=== PATIENT | male | born 1970 | race Hispanic/Latino ===

== ENCOUNTER 2020-03-04 15:14 | Inpatient (IN) | payer OTHER ==
[~2020-03-04] VITALS: Ht 182.9 cm; Wt 108.9 kg
[2020-03-04] MEDS ORDERED: SODIUM CHLORIDE 0.9% 1000ML 1,000 ML IV STA ×2 (15:32→17:13)
[2020-03-04] MEDS ORDERED: AZITHROMYCIN 500MG/NS 250 ML 250 ML IV ONE (15:45)
--- NOTE | 2020-03-04 16:00 | NUR ---
RESP CALLED FOR IDAO MIRLANDE PER MD
[2020-03-04 16:04] LABS: BASOPHILS # (AUTO) 0.1 (0.0-0.1); BASOPHILS % 0.4 % (0.0-1.0); EOSINOPHILS % 0.1 % (0.0-6.0); HEMATOCRIT 41.4 % (38.2-49.6); HEMOGLOBIN 13.9 g/dL (14.0-18.0); LYMPHOCYTES # (AUTO) 1.4 (1.0-3.2); LYMPHOCYTES % 7.8 % (18.0-39.1); MEAN CORPUSCULAR HEMOGLOBIN 28.5 pg (28-32); MEAN CORPUSCULAR HGB CONC 33.6 g/dL (31-35); MONOCYTES # (AUTO) 0.8 (0.2-0.8); MONOCYTES % 4.4 % (4.4-11.3); NEUTROPHILS % 86.4 % (38.7-80.0); PLATELET COUNT 361 x10e3/uL (140-360); RED BLOOD COUNT 4.87 x10e6/uL (4.3-5.7); RED CELL DISTRIBUTION WIDTH 12.1 % (11.7-14.4)
[2020-03-04] MEDS ORDERED: ASPIRIN EC81 MG (16:05)
[2020-03-04] MEDS ORDERED: METFORMIN HCL1000 MG (16:05)
[2020-03-04] MEDS ORDERED: NOVOLIN (16:05)
[2020-03-04] MEDS ORDERED: AZITHROMYCIN250 MG (16:05)
[2020-03-04] MEDS ORDERED: GLIMEPIRIDE4 MG (16:05)
[2020-03-04] MEDS ORDERED: LISINOPRIL-HCT1 EAC2 (16:05)
[2020-03-04] MEDS ORDERED: LOVASTATIN10 MG (16:05)
[2020-03-04] MEDS ORDERED: ALBUTEROL (16:05)
[2020-03-04 16:16] LABS: INR 0.97; PROTHROMBIN TIME 13.5 seconds (11.9-14.5)
[2020-03-04 16:17] LABS: PARTIAL THROMBOPLASTIN TIME 37.3 seconds (23.8-35.5)
--- NOTE | 2020-03-04 16:22 | NUR ---
VAPO THERM 30 LPM AT 80%
[2020-03-04 16:24] LABS: ALANINE AMINOTRANSFERASE 42 IU/L (0-55); ALBUMIN 2.5 g/dL (3.5-5.0); ALBUMIN/GLOBULIN RATIO 0.4 (0.8-2.0); ALKALINE PHOSPHATASE 144 IU/L (40-150); ANION GAP 17.4 mmol/L (8-16); BLOOD UREA NITROGEN 16 mg/dL (7-26); BUN/CREATININE RATIO 18 (6-25); CALCIUM 9.6 mg/dL (8.4-10.2); CARBON DIOXIDE 24 mmol/L (22-29); CHLORIDE 95 mmol/L (98-107); CREATINE KINASE 75 IU/L (30-200); CREATININE, SERUM 0.91 mg/dL (0.72-1.25); EST GLOMERULAR FILTRATION RATE > 60 ML/MIN (60-); GLUCOSE 308 mg/dL (74-118); POTASSIUM 4.4 mmol/L (3.5-5.1); SODIUM 132 mmol/L (136-145)
--- NOTE | 2020-03-04 16:24 | NUR ---
G ORDERED PER MD. SMALLS DRAWING
[2020-03-04] MEDS ORDERED: CEFTRIAXONE SOD 2 GM/NS 100 ML 100 ML IV ONE (16:30)
[2020-03-04 16:39] LABS: B-TYPE NATRIURETIC PEPTIDE2 < 10.0 pg/mL (0-100)
--- NOTE | 2020-03-04 16:46 | NUR ---
INCREASED VAPO THERM TO 100% AT 40 LPM. REMAINS TACHYPNENIC AND TACHY
[2020-03-04 16:57] LABS: ABG HCO3 26 mmol/L (22-26); ABG PCO2 33 mmHg (35-45); ABG PO2 78 mmHg (80-105)
[2020-03-04] MEDS ORDERED: CEFTRIAXONE SOD 1 GM VIAL ONE ×2 (17:00→17:01)
--- NOTE | 2020-03-04 17:06 | NUR ---
GREEN SEPSIS SHEET ON CHART PER POLICY
--- NOTE | 2020-03-04 17:14 | Diagnostic Imaging Report ---
Examination: Single AP view of the chest. COMPARISON: None. INDICATION: Shortness of breath and hypoxia IMPRESSION: 1. Lines and Tubes: None 2. Lungs are hypoinflated. Diffuse bilateral patchy interstitial and airspace opacities, suggesting multifocal pneumonia (including viral) and/or pulmonary edema. 3. Cardiomediastinal silhouette is obscured. Pulmonary vasculature is obscured. 4. No acute bony abnormalities. Signed by: Dr. Felix Yo M.D. on 03/04/2020 5:10 PM
--- NOTE | 2020-03-04 17:22 | Emergency Department Note ---
History of Present Illnes History of Present Illness Chief Complaint: COVID PUI History of Present Illness This is a 49 year old male PATIENT IN FROM HOME WITH COMPLAINTS OF COUGH AND SHORTNESS OF BREATH X 1 WEEK; PATIENT TACHYPNEIC AND HYPOXIC IN TRIAGE; O2 SATS 77% ON ROOM AIR WHEN HE WALKED INTO TRIAGE Historian: Patient Arrival Mode: Car Manager Of Broadcast Content Required: No Onset (how long ago): week(s) (1) Radiation: Reports non-radiation Severity: moderate Onset quality: gradual Timing of current episode: constant Progression: worsening Chronicity: new Context: Reports recent illness Relieving factors: none Exacerbating factors: none Associated symptoms: Reports cough, Reports fever/chills, Reports shortness of breath Treatments prior to arrival: none Past Medical/Family History Physician Review I have reviewed the patient's past medical and family history. Any updates have been documented here. Past Medical History Recent Fever: No Clinical Suspicion of Infectio: Yes New/Unexplained Change in Ment: No Past Medical History: Hypertension, Diabetes Other Medical History: HLD Past Surgical History: None Social History Smoking Cessation: Never Smoker Counseling Performed: No Alcohol Use: Occasional Any Illegal Drug Use: No TB Exposure/Symptoms: No Physically hurt or threatened: No Family History Family history of heart diseas: No Other Any Pre-Existing Lines (PICC,: No Review of Systems Review of Systems Constitutional: Reports as per HPI EENTM: Reports no symptoms Cardiovascular: Reports no symptoms Respiratory: Reports as per HPI Gastrointestinal: Reports no symptoms Genitourinary: Reports no symptoms Musculoskeletal: Reports no symptoms Integumentary: Reports no symptoms Neurological: Reports no symptoms Psychological: Reports no symptoms Endocrine: Reports no symptoms Hematological/Lymphatic: Reports no symptoms Physical Exam Related Data Allergies: Coded Allergies: No Known Allergies (Unverified , 03/04/20) Triage Vital Signs Vital Signs Date Time Temp Pulse Resp B/P (MAP) Pulse Ox O2 Delivery O2 Flow Rate FiO2 03/04/20 15:23 98.0 135 36 169/88 82 Room Air 03/04/20 16:55 30.0 Vital signs reviewed: Yes Physical Exam CONSTITUTIONAL Constitutional: Present distressed HENT HENT: Present normocephalic, Present atraumatic, Present oropharynx clear/mois t, Present nose normal HENT L/R: Present left ext ear normal, Present right ext ear normal EYES Eyes: Reports PERRL, Reports conjunctivae normal NECK Neck: Present ROM normal PULMONARY Pulmonary: Present respiratory distress, Present other (DECREASED BS'S BASES, SCATTERED RHONCHI) CARDIOVASCULAR Cardiovascular: Present regular rhythm, Present tachycardia GASTROINTESTINAL Abdominal: Present soft, Present nontender, Present bowel sounds normal GENITOURINARY Genitourinary: Present exam deferred SKIN Skin: Present warm, Present dry MUSCULOSKELETAL Musculoskeletal: Present ROM normal NEUROLOGICAL Neurological: Present alert, Present oriented x 3, Present no gross motor or s ensory deficits PSYCHOLOGICAL Psychological: Present mood/affect normal, Present judgement normal Results Laboratory Result Diagram: 03/04/20 1545 03/04/20 1545 Laboratory Laboratory Tests Test 03/04/20 17:00 03/04/20 15:45 Arterial Blood pH 7.50 (7.35-7.45) Arterial Blood Partial Pressure CO2 33 mmHg (35-45) Arterial Blood Partial Pressure O2 78 mmHg (80-105) Arterial Blood HCO3 26 mmol/L (22-26) Arterial Blood Oxygen Saturation 97.0 % (95-98) Arterial Blood Base Excess 2.0 mmol/L (-2 - 3) FiO2 80 % White Blood Count 18.53 x10e3/uL (4.8-10.8) Red Blood Count 4.87 x10e6/uL (4.3-5.7) Hemoglobin 13.9 g/dL (14.0-18.0) Hematocrit 41.4 % (38.2-49.6) Mean Corpuscular Volume 85.0 fL (81-99) Mean Corpuscular Hemoglobin 28.5 pg (28-32) Mean Corpuscular Hemoglobin Concent 33.6 g/dL (31-35) Red Cell Distribution Width 12.1 % (11.7-14.4) Platelet Count 361 x10e3/uL (140-360) Neutrophils (%) (Auto) 86.4 % (38.7-80.0) Lymphocytes (%) (Auto) 7.8 % (18.0-39.1) Monocytes (%) (Auto) 4.4 % (4.4-11.3) Eosinophils (%) (Auto) 0.1 % (0.0-6.0) Basophils (%) (Auto) 0.4 % (0.0-1.0) Neutrophils # (Auto) 16.0 (2.1-6.9) Lymphocytes # (Auto) 1.4 (1.0-3.2) Monocytes # (Auto) 0.8 (0.2-0.8) Eosinophils # (Auto) 0.0 (0.0-0.4) Basophils # (Auto) 0.1 (0.0-0.1) Absolute Immature Granulocyte (auto 0.17 x10e3/uL (0-0.1) Prothrombin Time 13.5 seconds (11.9-14.5) Prothromb Time International Ratio 0.97 Activated Partial Thromboplast Time 37.3 seconds (23.8-35.5) Sodium Level 132 mmol/L (136-145) Potassium Level 4.4 mmol/L (3.5-5.1) Chloride Level 95 mmol/L (98-107) Carbon Dioxide Level 24 mmol/L (22-29) Anion Gap 17.4 mmol/L (8-16) Blood Urea Nitrogen 16 mg/dL (7-26) Creatinine 0.91 mg/dL (0.72-1.25) Estimat Glomerular Filtration Rate > 60 ML/MIN (60-) BUN/Creatinine Ratio 18 (6-25) Glucose Level 308 mg/dL (74-118) Lactic Acid Level 2.1 mmol/L (0.5-2.0) Calcium Level 9.6 mg/dL (8.4-10.2) Total Bilirubin 0.6 mg/dL (0.2-1.2) Aspartate Amino Transf (AST/SGOT) 35 IU/L (5-34) Alanine Aminotransferase (ALT/SGPT) 42 IU/L (0-55) Alkaline Phosphatase 144 IU/L (40-150) Creatine Kinase 75 IU/L (30-200) Creatine Kinase MB 0.90 ng/mL (0-5.0) Troponin I < 0.001 ng/mL (0-0.300) B-Type Natriuretic Peptide < 10.0 pg/mL (0-100) Total Protein 8.4 g/dL (6.5-8.1) Albumin 2.5 g/dL (3.5-5.0) Globulin 5.9 g/dL (2.3-3.5) Albumin/Globulin Ratio 0.4 (0.8-2.0) Lab results reviewed: Yes Imaging Imaging results reviewed: Yes Procedures 12 Lead ECG Interpretation ECG Interpretation : ECG: ECG 1 Manager Of Broadcast Content: Interpreted by ED physician Date: Mar 04, 2020 Time: 15:43 Rhythm: sinus tachycardia Rate: tachycardia (126) QRS axis: normal T waves normal: Yes Clinical Impression: abnormal ECG (NON-SPECIFIC ST ABNL) ABG Interpretation ABG Results: ABG 1 Interpretation: other (RESPIRATORY ALKALOSIS, HYPOXIA) Critical Care Time Total Critical Care Time (min): 35 Critical care time exclusive o: separately billable procedures Critcal care necessary due to: respiratory failure Critcal care time spent by me: discussion w consultants, evaluation patient response to tx, examination of patient, order/perform tx or interventions, pulse oximetry, re-evaluation of patient condition Assessment & Plan Medical Decision Making MDM RESP DISTRESS, DIDIER COVID - CBC, CHEM, ECG, CARDIACS, BNP, LACTIC ACID, PANCX'S, CXR, COVID SWAB - R/O COVID19, SEPSIS, PNEUMONIA, STEMI/NSTEMI, CHF Reassessment Reassessment RESPIRATORY DISTRESS - STILL HYPOXIC AND TACHYPNEIC WITH 5L NC - WILL START VAPOTHERM SPOKE WITH DR CABEZAS FOR ADMISSION, DR Carlie ROBLEDO & DR WAYNE Assessment & Plan Final Impression: (1) Respiratory failure (2) Pneumonia due to COVID-19 virus Depart Disposition: ADMITTED Last Vital Signs Date Time Temp Pulse Resp B/P (MAP) Pulse Ox O2 Delivery O2 Flow Rate FiO2 03/04/20 16:55 112 30 98 30.0 03/04/20 16:48 158/84 03/04/20 15:23 98.0 Room Air Home Meds Reported Medications Aspirin (ASPIRIN EC) 81 Mg Tablet. 03/04/20 Metformin Hcl (METFORMIN HCL) 1,000 Mg Tablet 03/04/20 Glimepiride (GLIMEPIRIDE) 4 Mg Tablet 03/04/20 Lisinopril/Hydrochlorothiazide (LISINOPRIL-HCTZ 10-12.5 MG TAB) 1 Each Tablet 03/04/20 Lovastatin (LOVASTATIN) 10 Mg Tablet 03/04/20 [Novolin] No Conflict Check 03/04/20 [Albuterol] No Conflict Check 03/04/20 Azithromycin (Z-LEIF) 250 Mg Tablet 03/04/20 Medications in the ED Sodium Chloride 1,000 ml @ 0 mls/hr Q0M STAT IV ; Start 03/04/20 at 15:32; Stop 03/04/20 at 15:36; Status DC Ceftriaxone Sodium 100 ml @ 200 mls/hr ONCE ONCE IV ; Start 03/04/20 at 16:30; Stop 03/04/20 at 16:59; Status DC Azithromycin 250 ml @ 200 mls/hr NOW ONCE IV ; Start 03/04/20 at 15:45; Stop 03/04/20 at 16:59; Status DC Ceftriaxone Sodium 1 gm STK-MED ONCE .ROUTE ; Start 03/04/20 at 17:00; Stop 03/04/20 at 16:55; Status DC Ceftriaxone Sodium 1 gm STK-MED ONCE .ROUTE ; Start 03/04/20 at 17:01; Stop 03/04/20 at 16:56; Status DC CHEPE AMADOR MD Mar 04, 2020 17:21
[2020-03-04] MEDS ORDERED: DEXAMETHASONE SOD PHOS INJ 4 MG/ML VIAL IV ONE (17:30)
[2020-03-04] MEDS ORDERED: ENOXAPARIN SOD INJ 40 MG/0.4 ML SYR SC ONE (17:38)
[2020-03-04] MEDS ORDERED: ZOLPIDEM TARTRATE 5 MG TAB PO PRN (18:00)
[2020-03-04] MEDS ORDERED: ALBUTEROL SULFATE HFA 8GM INHALATION AEROSOL INH PRN (18:00)
[2020-03-04] MEDS ORDERED: GUAIFENESIN/CODEINE 10 ML CUP PO PRN (18:00)
[2020-03-04] MEDS ORDERED: DEXMEDETOMIDINE 200MCG/NS 50ML 50 ML IV PRN (18:15)
[2020-03-04] MEDS ORDERED: DEXTROSE 50% SYRINGE 50 ML IV PRN (18:15)
[2020-03-04] MEDS ORDERED: INSULIN GLARGINE 100 UNITS/ML VIAL SQ SCH (21:00)
[2020-03-04] MEDS: INSULIN REGULAR, HUMAN 100 UNIT/1 ML 3ML VIAL SQ SCH (22:02)
[2020-03-05] VITALS (9 sets, daily range): BP systolic 121–149; BP diastolic 63–88
--- NOTE | 2020-03-05 01:28 | Consultation ---
DATE OF CONSULTATION: Pulmonary and Critical Care Consultation CHIEF COMPLAINT: Dyspnea and cough for the past week. HISTORY OF PRESENT ILLNESS: The patient is a 49-year-old man. He has a history of hypertension, but no prior cardiac disease. He also has a history of diabetes. He notes worsening dyspnea over the past week. He has a cough productive of small amounts of phlegm. He does not complain of chest pain. He is unsure about fevers. He has no nausea or vomiting. PAST MEDICAL HISTORY: 1. Hypertension. 2. Diabetes. 3. Hypercholesterolemia. PAST SURGICAL HISTORY: Noncontributory. ALLERGIES: NO KNOWN DRUG ALLERGIES. SOCIAL HISTORY: The patient is not a smoker. He is not a drinker. REVIEW OF SYSTEMS: There is no fever. He has no headache. He does not complain of any neck pain. He has no chest pain. He does note some dyspnea. He denies abdominal pain. There is no nausea or vomiting. He has no leg edema. PHYSICAL EXAMINATION: VITAL SIGNS: The blood pressure is 145/88, saturation is 100% on a Vapotherm with 40 L and FiO2 of 100%. HEENT: Shows no facial swelling or erythema. CARDIAC: Reveals regular rate and rhythm with normal S1 and S2. LUNGS: Auscultation of lungs reveals crackles at the bases. There is no wheezing. ABDOMEN: Soft, nontender. There is no rebound or guarding. EXTREMITIES: Shows no leg edema or calf tenderness. There is no cyanosis or clubbing. SKIN: Shows no rashes. NEUROLOGICAL: Shows no focal abnormalities. LABORATORY DATA: White blood cell count is 18.5, hemoglobin is 13.9. The platelet count is 361. BUN to creatinine ratio is 16 to 0.91. Glucose is 309. The sodium is 132. Albumin is 2.5. RADIOGRAPHIC DATA: Chest x-ray shows diffuse bilateral infiltrates. IMPRESSION: 1. Acute respiratory failure. 2. Community-acquired pneumonia. 3. Possible coronavirus disease-2019 infection. 4. Diabetes. 5. Hypertension. PLAN: 1. The patient has received a 30 mL/kg IV fluid bolus for sepsis. 2. The patient is started on antibiotics. 3. Dexamethasone daily. 4. Lovenox. 5. Monitor and control blood sugars. 6. Continue Vapotherm. 7. ICU care. MD MONISHA Agrawal/NINAL /[id number]
--- NOTE | 2020-03-05 05:30 | Diagnostic Imaging Report ---
EXAMINATION: CHEST SINGLE (PORTABLE) INDICATION: ^viral pneumonia COMPARISON: 03/04/2020 FINDINGS: AP view TUBES and LINES: None. LUNGS: Unchanged pulmonary airspace disease. PLEURA: No pleural effusion or pneumothorax. HEART AND MEDIASTINUM: The cardiomediastinal silhouette is unremarkable. BONES AND SOFT TISSUES: No acute osseous lesion. Soft tissues are unremarkable. UPPER ABDOMEN: No free air under the diaphragm. IMPRESSION: Unchanged pulmonary airspace disease consistent with provided history of viral pneumonia. Signed by: Clemente Lyons MD on 03/05/2020 5:26 AM
--- NOTE | 2020-03-05 07:24 | NUR ---
NOTIFIED LAB OF NEED FOR THEM TO DRAW ORDERS.
--- NOTE | 2020-03-05 07:35 | NUR ---
PT ON LEFT LAT RECUM.POSITION, PT STATES CANT LAY ON STOMACH. PT AAOX4. REMAINS ON VAPO THERM AT 40 LPM/100% FIO2. SATS 96%. GIVEN WATER PO. PT SINUS NO ECTOPY NOTED. PT GIVEN UPDATE.
[2020-03-05 08:12] LABS: BASOPHILS % 0.3 % (0.0-1.0); HEMATOCRIT 41.4 % (38.2-49.6); HEMOGLOBIN 13.3 g/dL (14.0-18.0); LYMPHOCYTES # (AUTO) 1.4 (1.0-3.2); LYMPHOCYTES % 9.8 % (18.0-39.1); MEAN CORPUSCULAR HEMOGLOBIN 28.6 pg (28-32); MEAN CORPUSCULAR HGB CONC 32.1 g/dL (31-35); MONOCYTES # (AUTO) 0.5 (0.2-0.8); MONOCYTES % 3.6 % (4.4-11.3); NEUTROPHILS # (AUTO) 11.9 (2.1-6.9); NEUTROPHILS % 85.4 % (38.7-80.0); PLATELET COUNT 386 x10e3/uL (140-360); RED BLOOD COUNT 4.65 x10e6/uL (4.3-5.7); RED CELL DISTRIBUTION WIDTH 12.4 % (11.7-14.4)
[2020-03-05 08:32] LABS: ALANINE AMINOTRANSFERASE 45 IU/L (0-55); ALBUMIN 2.1 g/dL (3.5-5.0); ALBUMIN/GLOBULIN RATIO 0.4 (0.8-2.0); ALKALINE PHOSPHATASE 129 IU/L (40-150); ANION GAP 14.6 mmol/L (8-16); BLOOD UREA NITROGEN 23 mg/dL (7-26); BUN/CREATININE RATIO 27 (6-25); CALCIUM 9.2 mg/dL (8.4-10.2); CARBON DIOXIDE 24 mmol/L (22-29); CHLORIDE 103 mmol/L (98-107); CREATININE, SERUM 0.85 mg/dL (0.72-1.25); EST GLOMERULAR FILTRATION RATE > 60 ML/MIN (60-); GLUCOSE 304 mg/dL (74-118); POTASSIUM 4.6 mmol/L (3.5-5.1); SODIUM 137 mmol/L (136-145)
[2020-03-05 08:54] LABS: CREATINE KINASE MB 1.3 ng/mL (0-5.0)
[2020-03-05] MEDS: ENOXAPARIN SOD INJ 40 MG/0.4 ML SYR SC SCH ×2 (08:59→20:14)
[2020-03-05] MEDS: INSULIN REGULAR, HUMAN 100 UNIT/1 ML 3ML VIAL SQ SCH ×4 (08:59→20:21)
[2020-03-05] MEDS ORDERED: ENOXAPARIN SOD INJ 40 MG/0.4 ML SYR SC SCH (09:00)
[2020-03-05] MEDS: AZITHROMYCIN 500MG/NS 250 ML 250 ML IV SCH (16:00)
[2020-03-05] MEDS: CEFTRIAXONE SOD 1 GM/NS 50 ML 50 ML IV SCH (16:00)
[2020-03-05] MEDS: DEXAMETHASONE PHOS 4MG/ML 5ML MULTIDOSE VIAL IV SCH (16:00)
[2020-03-05] MEDS: ZINC SULFATE 220 MG CAP PO SCH (16:00)
[2020-03-05] MEDS: ASCORBIC ACID 500 MG TAB PO SCH (16:00)
[2020-03-05] MEDS ORDERED: REMDESIVIR 200MG/NS 100ML 200 MG IV ONE (17:00)
--- NOTE | 2020-03-05 17:43 | Consultation ---
DATE OF CONSULTATION: REASON FOR CONSULTATION: Sepsis, pneumonia, COVID-19. HISTORY OF PRESENT ILLNESS: This is a 49-year-old male with history of obesity and hypertension, who has been sick for 5 days with fever and chills, getting progressively shortness of breath over the last couple days. The patient came to the emergency room where he was evaluated. The patient also has some productive cough. The patient does have history of hypertension, diabetes mellitus, hypercholesteremia, and obesity. Currently in the Emergency Room, the patient is seen and examined. Chart reviewed. LABORATORY DATA: Reviewed. His white count on admission was 18.5, hemoglobin 13.9, and his platelet of 361. Sodium 137, potassium 4.6, and creatinine 0.85. His glucose was 271, and liver enzyme. His AST 36. PHYSICAL EXAMINATION: GENERAL: Currently alert and oriented. He is hypoxemic, short of breath. VITAL SIGNS: His heart rate 84, respirations 25, O2 saturation of 95 on 40% oxygenation. HEENT: Normocephalic. CHEST: Few rhonchi, bilateral. HEART: S1-S2. No murmur. ABDOMEN: Soft. Bowel sounds present. EXTREMITIES: No edema. SKIN: No rashes. IMPRESSION AND PLAN: 1. Coronavirus disease-19, present on admission. 2. Acute respiratory failure, present on admission. 3. Superimposed community-acquired pneumonia. 4. Diabetes mellitus, not controlled. 5. Obesity. We will start the patient on Rocephin 1 g daily 5 days, azithromycin 500 mg daily for 3 days, diabetic control, and Lovenox 0.5 mg/kg q.12 hours. Continue with Lipitor. Continue all his home medications, vitamin C, vitamin D, zinc supplement, and dexamethasone 6 mg daily. Discussed with the patient about remdesivir. He is aware it is still investigational drug, however, that is FAD approved for urgent patient and he does meet the criteria, has been ill less than 5 days. I think he would benefit. The patient agreed to it. We will do 200 mg now and then 100 mg IV piggyback q.24 hours to finish 5 days. The patient is going to be admitted to the hospital. Discussed with the medical team. Thank you for asking me to see this patient. MD ANDERS Tapia/AMARA /[id number]
--- NOTE | 2020-03-05 18:02 | Progress Note ---
DATE: Pulmonary Critical Care Progress Note SUBJECTIVE: The patient remains on Vapotherm. He is still on 40 L with 100% FiO2, but is less tachypneic and appears more comfortable. He has less cough. PHYSICAL EXAMINATION: VITAL SIGNS: The patient is afebrile. The blood pressure is 145/70, and saturation is 95%. HEENT: No facial swelling or erythema. CARDIAC: Regular rate and rhythm with normal S1, S2. LUNGS: Auscultation of lungs reveals crackles at the bases. There is no wheezing. ABDOMEN: Soft, nontender. There is no rebound or guarding. EXTREMITIES: No leg edema or calf tenderness. There is no cyanosis or clubbing. SKIN: No rashes. NEUROLOGICAL: No focal abnormalities. RADIOGRAPHIC DATA: Chest x-ray shows bilateral pulmonary infiltrates. LABORATORY DATA: White blood cell count is 13.9, hemoglobin is 15.3, and platelet count is 386. BUN to creatinine ratio is normal. Other electrolytes are within normal limits. The glucose is 250-315. IMPRESSION: 1. Viral pneumonia and coronavirus disease-19 infection. 2. Acute respiratory failure. 3. Diabetes. 4. Hypertension. PLAN: 1. Continue Vapotherm. 2. Continue current antibiotics. 3. The patient has been started on remdesivir. 4. Dexamethasone. Ortega Mcginnis MD [facility]/MODL /[id number]
[2020-03-05] MEDS: ATORVASTATIN 20 MG TAB PO SCH (20:19)
[2020-03-05] MEDS ORDERED: INSULIN GLARGINE 100 UNITS/ML VIAL SQ SCH ×2 (21:00)
[2020-03-05 21:24] LABS: BILIRUBIN,URINE NEGATIVE (NEGATIVE); CLARITY,URINE SL CLOUDY (CLEAR); COLOR,URINE YELLOW (YELLOW); KETONES,URINE 2+ (NEGATIVE); LEUKOCYTE ESTERASE ,URINE NEGATIVE (NEGATIVE); NITRITE,URINE NEGATIVE (NEGATIVE); PROTEIN,URINE DIPSTICK 1+ (NEGATIVE); URINE UROBILINOGEN 0.2 mg/dL (0.2 - 1)
[2020-03-05 21:35] LABS: BACTERIA,URINE MODERATE /HPF; EPITHELIAL CELLS,URINE FEW /LPF; WBC,URINE (MAN) 0-5 /HPF (0-5)
[2020-03-05 22:00] LABS: CREATINE KINASE MB 1.3 ng/mL (0-5.0)
[2020-03-06] VITALS (12 sets, daily range): BP systolic 126–145; BP diastolic 59–82
[2020-03-06 06:02] LABS: BASOPHILS % 0.3 % (0.0-1.0); HEMATOCRIT 40.6 % (38.2-49.6); HEMOGLOBIN 13.2 g/dL (14.0-18.0); LYMPHOCYTES # (AUTO) 1.4 (1.0-3.2); MEAN CORPUSCULAR HEMOGLOBIN 28.2 pg (28-32); MEAN CORPUSCULAR HGB CONC 32.5 g/dL (31-35); MEAN CORPUSCULAR VOLUME 86.8 fL (81-99); MONOCYTES # (AUTO) 0.7 (0.2-0.8); MONOCYTES % 4.5 % (4.4-11.3); NEUTROPHILS # (AUTO) 12.9 (2.1-6.9); NEUTROPHILS % 84.9 % (38.7-80.0); PLATELET COUNT 438 x10e3/uL (140-360); RED BLOOD COUNT 4.68 x10e6/uL (4.3-5.7); RED CELL DISTRIBUTION WIDTH 12.7 % (11.7-14.4)
[2020-03-06 06:20] LABS: ALANINE AMINOTRANSFERASE 54 IU/L (0-55); ALBUMIN/GLOBULIN RATIO 0.4 (0.8-2.0); ALKALINE PHOSPHATASE 116 IU/L (40-150); ANION GAP 13.2 mmol/L (8-16); BLOOD UREA NITROGEN 30 mg/dL (7-26); BUN/CREATININE RATIO 38 (6-25); CALCIUM 9.1 mg/dL (8.4-10.2); CARBON DIOXIDE 24 mmol/L (22-29); CHLORIDE 103 mmol/L (98-107); CHOL/HDL RATIO 17.5 (3.9-4.7); CHOLESTEROL 140 MD/DL (0-199); EST GLOMERULAR FILTRATION RATE > 60 ML/MIN (60-); GLUCOSE 326 mg/dL (74-118); HDL CHOLESTEROL 8 MG/DL (40-60); LDL CHOLESTEROL 93 MG/DL (60-130); POTASSIUM 4.2 mmol/L (3.5-5.1); SODIUM 136 mmol/L (136-145); TRIGLYCERIDES 196 MG/DL (0-149)
[2020-03-06 06:43] LABS: THYROID STIMULATING HORMONE 0.632 uIU/mL (0.350-4.940)
--- NOTE | 2020-03-06 07:00 | NUR ---
PT ASSISTED INTO PRONE POSITION AT THIS TIME.
[2020-03-06] MEDS: ENOXAPARIN SOD INJ 40 MG/0.4 ML SYR SC SCH ×2 (07:58→20:20)
[2020-03-06] MEDS: INSULIN REGULAR, HUMAN 100 UNIT/1 ML 3ML VIAL SQ SCH ×4 (07:58→20:31)
--- NOTE | 2020-03-06 08:27 | Diagnostic Imaging Report ---
EXAMINATION: CHEST SINGLE (PORTABLE) INDICATION: Viral pneumonia COMPARISON: Chest radiograph 03/05/2020 FINDINGS: LINES/TUBES:EKG leads overlie the chest. LUNGS:The lung volumes are low. Unchanged left greater than right multifocal airspace opacities. PLEURA:No pleural effusion or pneumothorax. MEDIASTINUM:The cardiomediastinal silhouette appears unchanged in size and shape. BONES/SOFT TISSUES:No acute osseous injury. ABDOMEN:No free air under the diaphragm. IMPRESSION: No significant interval change. Signed by: Ed Rollins MD on 03/06/2020 8:24 AM
[2020-03-06] MEDS: LISINOPRIL 10 MG TAB PO SCH (08:31)
[2020-03-06] MEDS: ASCORBIC ACID 500 MG TAB PO SCH ×2 (08:31→16:20)
[2020-03-06] MEDS: ZINC SULFATE 220 MG CAP PO SCH ×2 (08:31→16:20)
[2020-03-06] MEDS: HYDROCHLOROTHIAZIDE 25 MG TAB PO SCH (08:31)
[2020-03-06] MEDS: REMDESIVIR 100MG/NS 100ML 100 MG IV SCH (15:08)
[2020-03-06] MEDS: CEFTRIAXONE SOD 1 GM/NS 50 ML 50 ML IV SCH (16:20)
[2020-03-06] MEDS: AZITHROMYCIN 500MG/NS 250 ML 250 ML IV SCH (16:20)
[2020-03-06] MEDS: DEXAMETHASONE PHOS 4MG/ML 5ML MULTIDOSE VIAL IV SCH (16:20)
--- NOTE | 2020-03-06 16:47 | Progress Note ---
DATE: SUBJECTIVE: The patient is less tachypneic. He has less dyspnea. He still has some cough. He has no fevers. PHYSICAL EXAMINATION: VITAL SIGNS: The patient is afebrile. The blood pressure is 141/73 and the saturation is 94%. He is on a Vapotherm at 40 L with 100% FiO2. HEENT: No facial swelling or erythema. CARDIAC: Regular rate and rhythm with normal S1, S2. LUNGS: Auscultation of lungs reveals rhonchorous breath sounds bilaterally. There is no wheezing. ABDOMEN: Soft, nontender. There is no rebound or guarding. EXTREMITIES: No leg edema or calf tenderness. There is no cyanosis or clubbing. SKIN: No rashes. NEUROLOGICAL: No focal abnormalities. LABORATORY DATA: White blood cell count is 15.2 and hemoglobin is 13.2. The platelet count is 438. The BUN to creatinine ratio is 30 to 0.80. Blood sugar is 248. IMPRESSION: 1. Acute respiratory failure. 2. Viral pneumonia and coronavirus disease-19 infection. 3. Diabetes. 4. Hypertension. PLAN: 1. Continue Vapotherm and wean as tolerated. 2. Increase Lantus in the evening and continue subcu insulin before meals and at bedtime. 3. Complete remdesivir. 4. Dexamethasone. 5. Lovenox for DVT prophylaxis. Ortega Mcginnis MD [facility]/MODL /[id number]
[2020-03-06 19:24] LABS: BASOPHILS % 0.3 % (0.0-1.0); EOSINOPHILS % 0.1 % (0.0-6.0); HEMATOCRIT 40.6 % (38.2-49.6); HEMOGLOBIN 13.3 g/dL (14.0-18.0); LYMPHOCYTES # (AUTO) 1.2 (1.0-3.2); LYMPHOCYTES % 7.8 % (18.0-39.1); MEAN CORPUSCULAR HEMOGLOBIN 28.4 pg (28-32); MEAN CORPUSCULAR HGB CONC 32.8 g/dL (31-35); MEAN CORPUSCULAR VOLUME 86.8 fL (81-99); MONOCYTES # (AUTO) 0.7 (0.2-0.8); MONOCYTES % 4.5 % (4.4-11.3); NEUTROPHILS # (AUTO) 13.6 (2.1-6.9); NEUTROPHILS % 86.1 % (38.7-80.0); PLATELET COUNT 459 x10e3/uL (140-360); RED BLOOD COUNT 4.68 x10e6/uL (4.3-5.7)
[2020-03-06 19:37] LABS: ALANINE AMINOTRANSFERASE 51 IU/L (0-55); ALBUMIN 2.1 g/dL (3.5-5.0); ALBUMIN/GLOBULIN RATIO 0.4 (0.8-2.0); ALKALINE PHOSPHATASE 118 IU/L (40-150); ANION GAP 13.1 mmol/L (8-16); BLOOD UREA NITROGEN 31 mg/dL (7-26); BUN/CREATININE RATIO 35 (6-25); CALCIUM 8.8 mg/dL (8.4-10.2); CARBON DIOXIDE 23 mmol/L (22-29); CHLORIDE 102 mmol/L (98-107); CREATININE, SERUM 0.89 mg/dL (0.72-1.25); EST GLOMERULAR FILTRATION RATE > 60 ML/MIN (60-); GLUCOSE 363 mg/dL (74-118); POTASSIUM 4.1 mmol/L (3.5-5.1); SODIUM 134 mmol/L (136-145)
[2020-03-06 19:56] LABS: MAGNESIUM 2.2 MG/DL (1.3-2.1); PHOSPHORUS 3.3 MG/DL (2.3-4.7)
[2020-03-06] MEDS: ATORVASTATIN 20 MG TAB PO SCH (20:25)
[2020-03-06] MEDS ORDERED: INSULIN GLARGINE 100 UNITS/ML VIAL SQ SCH (21:00)
--- NOTE | 2020-03-07 06:40 | NUR ---
infectious disease progress notes 03/07/2020 pATIENT REMAINS ON OXYGEN SHORT OF BREATH he patient is less tachypneic. He has less dyspnea. He still has some cough. He has no fevers. CC be better PHYSICAL EXAMINATION: VITAL SIGNS: The patient is afebrile. The blood pressure is 141/73 and the saturation HEENT: No facial swelling or erythema. CARDIAC: Regular rate and rhythm with normal S1, S2. LUNGS: Auscultation of lungs reveals rhonchorous breath sounds bilaterally. There is no wheezing. ABDOMEN: Soft, nontender. There is no rebound or guarding. EXTREMITIES: No leg edema or calf tenderness. There is no cyanosis or clubbing. SKIN: No rashes. NEUROLOGICAL: No focal abnormalities. LABORATORY DATA: White blood cell count is 15.2 and hemoglobin is 13.2. The platelet count is 438. The BUN to creatinine ratio is 30 to 0.80. Blood sugar is 248. laboratory review cultures remains negative IMPRESSION: 1. Acute respiratory failure. 2. Viral pneumonia and coronavirus disease-19 infection. 3. Diabetes. 4. Hypertension. PLAN: 1. continue oxygen as ordered but is following 2 continue diabetic control Accu-Chek 3. Complete remdesivir. 4. Dexamethasone. 5. Lovenox for DVT prophylaxis. continue antibiotic Rocephin for 5 days Zithromax for 3 days supplements
[2020-03-07] MEDS: FAMOTIDINE 20 MG TAB PO SCH ×2 (07:45→16:30)
[2020-03-07] MEDS: INSULIN REGULAR, HUMAN 100 UNIT/1 ML 3ML VIAL SQ SCH ×3 (07:54→17:11)
--- NOTE | 2020-03-07 08:37 | Diagnostic Imaging Report ---
EXAMINATION: CHEST SINGLE (PORTABLE) INDICATION: Viral pneumonia COMPARISON: Multiple prior chest radiographs, most recently of 03/06/2020 FINDINGS: LINES/TUBES:EKG leads overlie the chest. LUNGS:The lungs are moderately inflated. Unchanged bilateral multifocal patchy opacities. PLEURA:No pleural effusion or pneumothorax. MEDIASTINUM:The cardiomediastinal silhouette appears unchanged in size and shape. BONES/SOFT TISSUES:No acute osseous injury. ABDOMEN:No free air under the diaphragm. IMPRESSION: No significant interval change. Signed by: Ed Rollins MD on 03/07/2020 8:33 AM
[2020-03-07] MEDS: ASCORBIC ACID 500 MG TAB PO SCH ×2 (09:18→17:12)
[2020-03-07] MEDS: LISINOPRIL 10 MG TAB PO SCH (09:18)
[2020-03-07] MEDS: ZINC SULFATE 220 MG CAP PO SCH ×2 (09:18→18:19)
[2020-03-07] MEDS: HYDROCHLOROTHIAZIDE 25 MG TAB PO SCH (09:19)
[2020-03-07] MEDS: ENOXAPARIN SOD INJ 40 MG/0.4 ML SYR SC SCH (10:46)
[2020-03-07] MEDS: REMDESIVIR 100MG/NS 100ML 100 MG IV SCH (14:00)
[2020-03-07] MEDS ORDERED: LACTATED RINGER'S 1,000 ML INJ ONE (15:15)
[2020-03-07] MEDS: AZITHROMYCIN 500MG/NS 250 ML 250 ML IV SCH (17:12)
[2020-03-07] MEDS: CEFTRIAXONE SOD 1 GM/NS 50 ML 50 ML IV SCH (17:12)
--- NOTE | 2020-03-07 17:37 | Progress Note ---
DATE: Pulmonary Critical Care Progress Note SUBJECTIVE: The patient remains on Vapotherm. He has less dyspnea and less cough. He is still on 100% with 40 L. PHYSICAL EXAMINATION: VITAL SIGNS: The blood pressure is 133/87 and saturation is 95% on Vapotherm. HEENT: Shows no facial swelling or erythema. LYMPHATIC: Shows no submandibular, cervical, or supraclavicular adenopathy. CARDIAC: Reveals regular rate and rhythm with normal S1 and S2. LUNGS: Auscultation of lungs reveals crackles at the bases. There is no wheezing. ABDOMEN: Soft and nontender. There is no rebound or guarding. EXTREMITIES: Shows no leg edema or calf tenderness. There is no cyanosis or clubbing. SKIN: Shows no rashes. NEUROLOGICAL: Shows no focal abnormalities. LABORATORY DATA: White blood cell count is 15.77 and hemoglobin is 13.3. The platelet count is 459. The BUN to creatinine ratio is 31 to 0.89. Other electrolytes are within normal limits. The blood sugar is 308. Albumin is 2.1. RADIOGRAPHIC DATA: Bilateral patchy opacities. IMPRESSION: 1. Acute respiratory failure. 2. Viral pneumonia and COVID-19 infection. 3. Diabetes. 4. Hypertension. PLAN: 1. Continue to wean Vapotherm as tolerated. 2. Complete remdesivir. 3. Dexamethasone. 4. Lovenox. 5. Monitor and adjust insulin to control blood sugars. Ortega Mcginnis MD [facility]/MODL /[id number]
[2020-03-07] MEDS: DEXAMETHASONE SOD PHOS 10 MG/1 ML VIAL IV SCH (18:19)
[2020-03-07] MEDS ORDERED: METOPROLOL TARTRATE INJ 1 MG/ML VIAL IV PRN (19:15)
[2020-03-08] VITALS (18 sets, daily range): BP systolic 119–140; BP diastolic 73–88
[2020-03-08] MEDS: ATORVASTATIN 20 MG TAB PO SCH ×2 (00:37→21:21)
[2020-03-08] MEDS: INSULIN GLARGINE 100 UNITS/ML VIAL SQ SCH ×2 (00:37→21:22)
[2020-03-08] MEDS: ENOXAPARIN SOD INJ 40 MG/0.4 ML SYR SC SCH ×3 (00:37→20:33)
[2020-03-08] MEDS: INSULIN REGULAR, HUMAN 100 UNIT/1 ML 3ML VIAL SQ SCH ×6 (00:37→21:06)
[2020-03-08 06:59] LABS: BASOPHILS % 0.3 % (0.0-1.0); EOSINOPHILS % 0.4 % (0.0-6.0); HEMATOCRIT 41.2 % (38.2-49.6); HEMOGLOBIN 13.6 g/dL (14.0-18.0); LYMPHOCYTES # (AUTO) 2.1 (1.0-3.2); LYMPHOCYTES % 18.5 % (18.0-39.1); MEAN CORPUSCULAR HEMOGLOBIN 28.2 pg (28-32); MEAN CORPUSCULAR VOLUME 85.5 fL (81-99); MONOCYTES # (AUTO) 0.5 (0.2-0.8); MONOCYTES % 4.7 % (4.4-11.3); NEUTROPHILS # (AUTO) 8.3 (2.1-6.9); NEUTROPHILS % 74.2 % (38.7-80.0); PLATELET COUNT 446 x10e3/uL (140-360); RED BLOOD COUNT 4.82 x10e6/uL (4.3-5.7); RED CELL DISTRIBUTION WIDTH 12.7 % (11.7-14.4)
[2020-03-08 07:20] LABS: ALANINE AMINOTRANSFERASE 34 IU/L (0-55); ALBUMIN 2.2 g/dL (3.5-5.0); ALBUMIN/GLOBULIN RATIO 0.5 (0.8-2.0); ALKALINE PHOSPHATASE 107 IU/L (40-150); BLOOD UREA NITROGEN 21 mg/dL (7-26); BUN/CREATININE RATIO 30 (6-25); CALCIUM 8.4 mg/dL (8.4-10.2); CARBON DIOXIDE 26 mmol/L (22-29); CHLORIDE 99 mmol/L (98-107); CREATININE, SERUM 0.71 mg/dL (0.72-1.25); EST GLOMERULAR FILTRATION RATE > 60 ML/MIN (60-); GLUCOSE 276 mg/dL (74-118); SODIUM 134 mmol/L (136-145)
[2020-03-08] MEDS: ASCORBIC ACID 500 MG TAB PO SCH ×2 (09:49→20:33)
[2020-03-08] MEDS: LISINOPRIL 10 MG TAB PO SCH (09:51)
[2020-03-08] MEDS: ZINC SULFATE 220 MG CAP PO SCH ×2 (09:51→20:33)
[2020-03-08] MEDS: FAMOTIDINE 20 MG TAB PO SCH ×2 (09:51→20:33)
[2020-03-08] MEDS: HYDROCHLOROTHIAZIDE 25 MG TAB PO SCH (09:52)
--- NOTE | 2020-03-08 12:01 | Progress Note ---
DATE: SUBJECTIVE: The patient was transferred out of the emergency department into the [facility] ICU today. He is not complaining of any dyspnea or cough. He is not complaining of chest pain. He has no nausea or vomiting. PHYSICAL EXAMINATION: VITAL SIGNS: The blood pressure is 130/88 and saturation is 99%. He is on Vapotherm at 40 L and 100%. HEENT: Shows no facial swelling or erythema. CARDIAC: Reveals regular rate and rhythm with normal S1 and S2. LUNGS: Auscultation of lungs reveals rhonchorous breath sounds bilaterally. There is no wheezing. ABDOMEN: Soft, nontender. There is no rebound or guarding. EXTREMITIES: Shows no leg edema or calf tenderness. There is no cyanosis or clubbing. SKIN: Shows no rashes. NEUROLOGICAL: Shows no focal abnormalities. LABORATORY DATA: BUN to creatinine ratio is normal. Other electrolytes were normal. Blood sugar is 228. The albumin is 2.2. IMPRESSION: 1. Acute respiratory failure. 2. Viral pneumonia, coronavirus disease-19 infection. 3. Diabetes. 4. Hypertension. PLAN: 1. Continue Vapotherm. 2. Continue to adjust insulin. 3. Complete remdesivir. 4. Dexamethasone. 5. Lovenox. Ortega Mcginnis MD [facility]/MODL /[id number]
[2020-03-08] MEDS: REMDESIVIR 100MG/NS 100ML 100 MG IV SCH (14:52)
[2020-03-08] MEDS: DEXAMETHASONE SOD PHOS 10 MG/1 ML VIAL IV SCH (18:00)
[2020-03-08] MEDS: CEFTRIAXONE SOD 1 GM/NS 50 ML 50 ML IV SCH (20:03)
[2020-03-08] MEDS: AZITHROMYCIN 500MG/NS 250 ML 250 ML IV SCH (21:02)
[2020-03-09] VITALS (19 sets, daily range): BP systolic 119–144; BP diastolic 70–86
[2020-03-09 05:29] LABS: BASOPHILS % 0.4 % (0.0-1.0); EOSINOPHILS # (AUTO) 0.6 (0.0-0.4); EOSINOPHILS % 5.3 % (0.0-6.0); HEMATOCRIT 42.2 % (38.2-49.6); HEMOGLOBIN 13.7 g/dL (14.0-18.0); LYMPHOCYTES # (AUTO) 2.6 (1.0-3.2); LYMPHOCYTES % 23.1 % (18.0-39.1); MEAN CORPUSCULAR HEMOGLOBIN 27.9 pg (28-32); MEAN CORPUSCULAR HGB CONC 32.5 g/dL (31-35); MEAN CORPUSCULAR VOLUME 85.9 fL (81-99); MONOCYTES # (AUTO) 0.6 (0.2-0.8); NEUTROPHILS % 62.9 % (38.7-80.0); PLATELET COUNT 390 x10e3/uL (140-360); RED BLOOD COUNT 4.91 x10e6/uL (4.3-5.7); RED CELL DISTRIBUTION WIDTH 12.8 % (11.7-14.4)
[2020-03-09 05:50] LABS: ALANINE AMINOTRANSFERASE 32 IU/L (0-55); ALBUMIN 2.2 g/dL (3.5-5.0); ALBUMIN/GLOBULIN RATIO 0.5 (0.8-2.0); ALKALINE PHOSPHATASE 103 IU/L (40-150); ANION GAP 10.7 mmol/L (8-16); BLOOD UREA NITROGEN 20 mg/dL (7-26); BUN/CREATININE RATIO 28 (6-25); CALCIUM 8.3 mg/dL (8.4-10.2); CARBON DIOXIDE 27 mmol/L (22-29); CHLORIDE 101 mmol/L (98-107); CREATININE, SERUM 0.72 mg/dL (0.72-1.25); EST GLOMERULAR FILTRATION RATE > 60 ML/MIN (60-); GLUCOSE 142 mg/dL (74-118); POTASSIUM 3.7 mmol/L (3.5-5.1); SODIUM 135 mmol/L (136-145)
[2020-03-09] MEDS: ZINC SULFATE 220 MG CAP PO SCH ×2 (09:00→16:05)
[2020-03-09] MEDS: INSULIN REGULAR, HUMAN 100 UNIT/1 ML 3ML VIAL SQ SCH ×4 (10:12→20:28)
[2020-03-09] MEDS: ENOXAPARIN SOD INJ 40 MG/0.4 ML SYR SC SCH ×2 (10:15→21:00)
[2020-03-09] MEDS: FAMOTIDINE 20 MG TAB PO SCH (10:15)
[2020-03-09] MEDS: ASCORBIC ACID 500 MG TAB PO SCH ×2 (10:15→16:04)
[2020-03-09] MEDS: LISINOPRIL 10 MG TAB PO SCH (10:15)
--- NOTE | 2020-03-09 10:25 | Progress Note ---
DATE: Pulmonary Critical Care Progress Note SUBJECTIVE: The patient is still on Vapotherm. He is on 40 L and 100%. Saturations are in the mid 90s. The patient also ate something today. PHYSICAL EXAMINATION: VITAL SIGNS: The patient is afebrile. The blood pressure is 128/78 and saturation is in the mid 90s. Respiratory rate is 30. HEENT: Shows no facial swelling or erythema. The oropharynx is normal. LYMPHATIC: Shows no submandibular, cervical, or supraclavicular adenopathy. CARDIAC: Reveals regular rate and rhythm with normal S1 and S2. There are no murmurs or rubs. LUNGS: Auscultation of lungs reveals crackles at bases. There is no wheezing. ABDOMEN: Soft and nontender. There is no rebound or guarding. EXTREMITIES: Shows no leg edema or calf tenderness. There is no cyanosis or clubbing. SKIN: Shows no rashes. NEUROLOGICAL: Shows no focal abnormalities. LABORATORY DATA: The BUN to creatinine ratio is 20 to 0.72 and the glucose is 142. The albumin is 2.2. White blood cell count is 11.05 and the hemoglobin is 13.7. The platelet count is 390. IMPRESSION: 1. Acute respiratory failure. 2. Viral pneumonia and COVID-19. 3. Diabetes. 4. Hypertension. PLAN: 1. Continue Vapotherm. 2. Place the patient in prone position. 3. Precedex. 4. Complete remdesivir. 5. Complete dexamethasone. 6. Lovenox. Ortega Mcginnis MD [facility]/MODL /[id number]
[2020-03-09] MEDS: REMDESIVIR 100MG/NS 100ML 100 MG IV SCH (14:58)
[2020-03-09] MEDS: CEFTRIAXONE SOD 1 GM/NS 50 ML 50 ML IV SCH (16:01)
[2020-03-09] MEDS: AZITHROMYCIN 500MG/NS 250 ML 250 ML IV SCH (16:05)
[2020-03-09] MEDS ORDERED: DEXAMETHASONE PHOS 4MG/ML 6 MG in SODIUM CHLORIDE 0.9% 50ML 50 ML IV SCH (18:00)
[2020-03-09] MEDS: DEXAMETHASONE PHOS 4MG/ML 6 MG in SODIUM CHLORIDE 0.9% 50ML 50 ML IV SCH (18:41)
[2020-03-09] MEDS: INSULIN GLARGINE 100 UNITS/ML VIAL SQ SCH (20:28)
--- NOTE | 2020-03-09 20:37 | Progress Note ---
DATE: 03/08/2020 CONSULTING PHYSICIANS: 1. Dr. Jeffry De Leon with Infectious Disease. 2. Dr. Ortega Mcginnis with Pulmonology Critical Care Medicine. SUBJECTIVE: The patient was transferred out of the emergency department into the COVID ICU today without complaints of dyspnea, cough, chest pain, nausea, vomiting, or diarrhea. On 03/07/2020, he was in the emergency department on Vapotherm 40 L/minute with FiO2 of 100%. At the time of dictation, the patient is on Vapotherm at the same settings. OBJECTIVE: VITAL SIGNS: Temperature 97.9, heart rate 71, blood pressure 130/88, respirations 31, and oxygen saturation 99%. GENERAL: The patient is supine, alert. LUNGS: With bibasilar crackles. Vapotherm 40 L/minute, FiO2 of 100%. HEENT: EOMI. NECK: Supple. CARDIOVASCULAR: Regular rate and rhythm without murmur. ABDOMEN: Bowel sounds positive. Soft, nontender. No guarding. EXTREMITIES: No pitting edema. No clubbing, cyanosis, or marked swelling. No signs of DVT. NEUROLOGIC: GCS is 15, nonfocal. LABORATORY DATA: WBC 11.1, hemoglobin 13.6, hematocrit 41.2, and platelets 446, yesterday platelets are 459. Fingerstick blood glucose levels 312, 328, and 267. Sodium 134, potassium 4.0, chloride 99, CO2 of 26, anion gap 13, BUN 21, creatinine 0.71, estimated GFR greater than 60, glucose 276, calcium 8.4, total bilirubin 0.3, AST 18, ALT 34, alkaline phosphatase 107, total protein 7.0, albumin 2.2. IMAGING: No new chest x-ray results. No new EKG results. ASSESSMENT AND PLAN: 1. Acute respiratory failure. Wean Vapotherm to high-flow oxygen as tolerated. 2. Viral pneumonia due to COVID-19. Continue azithromycin, Rocephin, complete remdesivir, dexamethasone nebs, Robitussin with codeine, Lovenox, vitamin C, zinc sulfate. 3. Uncontrolled type 2 diabetes mellitus with hyperglycemia. Fingerstick blood glucose levels remain elevated, we will adjust Lantus insulin accordingly. Continue sliding scale insulin. 4. Controlled hypertension. Lisinopril/hydrochlorothiazide 10/12.5 mg daily, p.r.n. metoprolol tartrate IV added for systolic blood pressure greater than 150. 5. Prophylaxis. Lovenox, Pepcid. BILLING CODE: 39047. TIME SPENT: 35 minutes. Dictated by Maikel Storey, LAY OUT TECHNICIAN [employer] Salguero MD [facility]/MODL /[id number]
[2020-03-09] MEDS: ATORVASTATIN 20 MG TAB PO SCH (21:00)
[2020-03-09] MEDS: FAMOTIDINE 20 MG/2 ML VIAL IV SCH (21:00)
[2020-03-10] VITALS (19 sets, daily range): BP systolic 119–151; BP diastolic 73–89
[2020-03-10 05:53] LABS: BASOPHILS % 0.3 % (0.0-1.0); EOSINOPHILS # (AUTO) 0.1 (0.0-0.4); EOSINOPHILS % 0.4 % (0.0-6.0); HEMATOCRIT 42.4 % (38.2-49.6); HEMOGLOBIN 13.7 g/dL (14.0-18.0); LYMPHOCYTES # (AUTO) 1.4 (1.0-3.2); LYMPHOCYTES % 12.2 % (18.0-39.1); MEAN CORPUSCULAR HGB CONC 32.3 g/dL (31-35); MEAN CORPUSCULAR VOLUME 86.5 fL (81-99); MONOCYTES # (AUTO) 0.5 (0.2-0.8); MONOCYTES % 4.3 % (4.4-11.3); NEUTROPHILS # (AUTO) 9.1 (2.1-6.9); NEUTROPHILS % 80.9 % (38.7-80.0); PLATELET COUNT 388 x10e3/uL (140-360); RED CELL DISTRIBUTION WIDTH 12.6 % (11.7-14.4)
[2020-03-10 06:08] LABS: ALANINE AMINOTRANSFERASE 29 IU/L (0-55); ALBUMIN/GLOBULIN RATIO 0.4 (0.8-2.0); ALKALINE PHOSPHATASE 98 IU/L (40-150); ANION GAP 9.2 mmol/L (8-16); BLOOD UREA NITROGEN 15 mg/dL (7-26); BUN/CREATININE RATIO 23 (6-25); CALCIUM 8.5 mg/dL (8.4-10.2); CARBON DIOXIDE 26 mmol/L (22-29); CHLORIDE 104 mmol/L (98-107); CREATININE, SERUM 0.65 mg/dL (0.72-1.25); EST GLOMERULAR FILTRATION RATE > 60 ML/MIN (60-); GLUCOSE 199 mg/dL (74-118); POTASSIUM 4.2 mmol/L (3.5-5.1); SODIUM 135 mmol/L (136-145)
[2020-03-10] MEDS: INSULIN REGULAR, HUMAN 100 UNIT/1 ML 3ML VIAL SQ SCH ×4 (08:28→20:25)
[2020-03-10] MEDS: ZINC SULFATE 220 MG CAP PO SCH ×2 (09:00→17:00)
[2020-03-10] MEDS: ENOXAPARIN SOD INJ 40 MG/0.4 ML SYR SC SCH ×2 (09:46→20:12)
[2020-03-10] MEDS: FAMOTIDINE 20 MG/2 ML VIAL IV SCH ×2 (09:47→20:12)
[2020-03-10] MEDS: LISINOPRIL 10 MG TAB PO SCH (09:48)
[2020-03-10] MEDS: ASCORBIC ACID 500 MG TAB PO SCH ×2 (09:48→17:00)
--- NOTE | 2020-03-10 10:09 | Diagnostic Imaging Report ---
EXAMINATION: CHEST SINGLE (PORTABLE) INDICATION: viral pneumonia COMPARISON: Multiple prior chest x-ray examinations most recent dated 03/07/2020 FINDINGS: AP view TUBES and LINES: None. LUNGS/PLEURA: There are increased bilateral patchy opacities compatible with multifocal pneumonia.. There is no pleural effusion or pneumothorax. HEART AND MEDIASTINUM: The cardiomediastinal silhouette is unremarkable. BONES AND SOFT TISSUES: No acute osseous lesion. Soft tissues are unremarkable. UPPER ABDOMEN: No free air under the diaphragm. IMPRESSION: Increase bilateral patchy opacities compatible with multifocal pneumonia. Signed by: Papi Mckinley MD on 03/10/2020 10:05 AM
--- NOTE | 2020-03-10 12:34 | Progress Note ---
DATE: SUBJECTIVE: The patient is not complaining of dyspnea, but he is breathing in the low 30s. He is on Vapotherm at 40 L with 100% FiO2. PHYSICAL EXAMINATION: VITAL SIGNS: The patient is afebrile. The blood pressure is 151/89, saturation is 94%, and respiratory rate is 29. HEENT: Shows no facial swelling or erythema. CARDIAC: Reveals regular rate and rhythm with normal S1 and S2. LUNGS: Auscultation of lungs reveals crackles at the bases. There is wheezing. ABDOMEN: Soft and nontender. There is no rebound or guarding. EXTREMITIES: Shows no leg edema or calf tenderness. There is no cyanosis or clubbing. SKIN: Shows no rashes. NEUROLOGICAL: Shows no focal abnormalities. LABORATORY DATA: White blood cell count 11.2, hemoglobin is 13.7, and the platelet count is 388. BUN to creatinine ratio is normal. Other electrolytes are within normal limits. The albumin is 2.0. RADIOGRAPHIC DATA: Chest x-ray shows patchy bilateral infiltrates. IMPRESSION: 1. Acute respiratory failure. 2. Viral pneumonia and COVID-19 infection. 3. Diabetes. 4. Hypertension. PLAN: 1. Continue Vapotherm and place in the prone position. 2. Precedex as needed. 3. Remdesivir. 4. Complete dexamethasone. 5. Monitor and control blood sugars. Ortega Mcginnis MD [facility]/MODL /[id number]
[2020-03-10] MEDS: REMDESIVIR 100MG/NS 100ML 100 MG IV SCH (14:00)
--- NOTE | 2020-03-10 14:38 | NUR ---
Nutrition Screen Note RD Recommendation for Physician: -Continue current diet as ordered -If PO intake <50% of meals, offer Glucerna nutrition supplement Plan of Care: RD following, monitoring for tolerance and adequacy Nutrition reason for involvement: Length of stay Primary Diagnose(s): pneumonia due to COVID-19, respiratory failure PMH: HTN, diabetes, hypercholesterolemia Ht: 72 in Wt:260 lb BMI: 35.3 kg/m2 IBW:[address] Assessment: (03/10/20) Chart reviewed. Labs and meds reviewed. Pt is a 49 year old male admitted with pneumonia due to COVID-19 and respiratory failure. Unable to speak to pt due to isolation precautions. Meal intake is not recorded at this time and there are no previous weights in chart. If PO intake is <50% of meals, offer Glucerna nutrition supplement. Will continue to monitor Current Diet: 1999 ADA Malnutrition Evaluation (03/10/20) Unable to assess. Will re-evaluate at follow-up as appropriate. Diet Education Needs Assessment: RD is available for diet education as needed Nutrition Care Level: low Signed: Noa Hi, RD, LD
[2020-03-10] MEDS: DEXAMETHASONE PHOS 4MG/ML 6 MG in SODIUM CHLORIDE 0.9% 50ML 50 ML IV SCH (16:33)
[2020-03-10] MEDS: CEFTRIAXONE SOD 1 GM/NS 50 ML 50 ML IV SCH (16:34)
[2020-03-10] MEDS: ATORVASTATIN 20 MG TAB PO SCH (20:22)
[2020-03-10] MEDS: INSULIN GLARGINE 100 UNITS/ML VIAL SQ SCH (20:27)
[2020-03-11] VITALS (29 sets, daily range): BP systolic 114–145; BP diastolic 67–81
[2020-03-11 05:53] LABS: BASOPHILS % 0.3 % (0.0-1.0); EOSINOPHILS # (AUTO) 0.1 (0.0-0.4); EOSINOPHILS % 1.1 % (0.0-6.0); HEMATOCRIT 40.5 % (38.2-49.6); HEMOGLOBIN 13.7 g/dL (14.0-18.0); LYMPHOCYTES # (AUTO) 1.8 (1.0-3.2); MEAN CORPUSCULAR HEMOGLOBIN 30.4 pg (28-32); MEAN CORPUSCULAR HGB CONC 33.8 g/dL (31-35); MEAN CORPUSCULAR VOLUME 89.8 fL (81-99); MONOCYTES # (AUTO) 0.7 (0.2-0.8); MONOCYTES % 5.6 % (4.4-11.3); NEUTROPHILS # (AUTO) 8.9 (2.1-6.9); NEUTROPHILS % 76.5 % (38.7-80.0); PLATELET COUNT 357 x10e3/uL (140-360); RED BLOOD COUNT 4.51 x10e6/uL (4.3-5.7); RED CELL DISTRIBUTION WIDTH 13.2 % (11.7-14.4)
[2020-03-11 06:18] LABS: ALANINE AMINOTRANSFERASE 32 IU/L (0-55); ALBUMIN 2.1 g/dL (3.5-5.0); ALBUMIN/GLOBULIN RATIO 0.4 (0.8-2.0); ALKALINE PHOSPHATASE 100 IU/L (40-150); ANION GAP 10.3 mmol/L (8-16); BLOOD UREA NITROGEN 16 mg/dL (7-26); BUN/CREATININE RATIO 22 (6-25); CALCIUM 8.7 mg/dL (8.4-10.2); CARBON DIOXIDE 29 mmol/L (22-29); CHLORIDE 100 mmol/L (98-107); CREATININE, SERUM 0.73 mg/dL (0.72-1.25); EST GLOMERULAR FILTRATION RATE > 60 ML/MIN (60-); GLUCOSE 168 mg/dL (74-118); POTASSIUM 4.3 mmol/L (3.5-5.1); SODIUM 135 mmol/L (136-145)
[2020-03-11 06:37] LABS: MAGNESIUM 2.1 MG/DL (1.3-2.1); PHOSPHORUS 3.9 MG/DL (2.3-4.7)
[2020-03-11] MEDS: INSULIN REGULAR, HUMAN 100 UNIT/1 ML 3ML VIAL SQ SCH ×4 (07:30→19:58)
--- NOTE | 2020-03-11 08:30 | Diagnostic Imaging Report ---
Examination: Single AP view of the chest. COMPARISON: 03/10/2020 INDICATION: Pneumonia DISCUSSION: Lines/tubes: None. Lungs: Decreased airspace consolidations and improved aeration. Pleura: No pleural effusion or pneumothorax. Heart and mediastinum: The heart and the mediastinum are unremarkable. Bones and soft tissues: No acute bony abnormalities. IMPRESSION: Decreased airspace consolidations with improved aeration. Signed by: Dr. Jonny Mckay M.D. on 03/11/2020 8:27 AM
[2020-03-11] MEDS: ZINC SULFATE 220 MG CAP PO SCH ×2 (09:00→16:56)
[2020-03-11] MEDS: FAMOTIDINE 20 MG/2 ML VIAL IV SCH ×2 (09:23→19:54)
[2020-03-11] MEDS: LISINOPRIL 10 MG TAB PO SCH (09:23)
[2020-03-11] MEDS: ENOXAPARIN SOD INJ 40 MG/0.4 ML SYR SC SCH ×2 (09:23→19:54)
[2020-03-11] MEDS: ASCORBIC ACID 500 MG TAB PO SCH ×2 (09:24→16:56)
[2020-03-11] MEDS: VANCOMYCIN 1GM/NS 250 ML 250 ML IV SCH ×2 (12:51→23:37)
--- NOTE | 2020-03-11 13:59 | Progress Note ---
DATE: 03/09/2020 SUBJECTIVE: The patient is seen in [facility] [place] ICU room #19 at 1730 hours and afternoon on 03/07/2020 in the emergency room. The patient was on Vapotherm 40 L/minute with FiO2 of 100%. The patient specifically if he had any headache, dizziness, nausea, vomiting, diarrhea, or chest pain. The patient denied all of these. OBJECTIVE: VITAL SIGNS: Temperature 98.2, heart rate 65, blood pressure 125/82, respirations 17, and oxygen saturation 96%. GENERAL: The head of bed is elevated above 30 degrees. He appears a bit sleepy, however, awakens easily. LUNGS: Bibasilar crackles. Currently respirations are even and nonlabored. He is on Vapotherm 40 L/minute, with FiO2 of 100%, as well as being on a non-rebreather mask, at the same time with oxygen saturation of 98% at time of encounter. HEENT: EOMI. NECK: Supple. No JVD. CARDIOVASCULAR: Regular rate and rhythm. No murmur. ABDOMEN: Bowel sounds positive. Soft, nontender. He is obese. EXTREMITIES: No pitting edema. No clubbing, cyanosis, or marked swelling. NEUROLOGIC: GCS is 15, nonfocal. Oriented x4. LABORATORY DATA: WBCs 11, hemoglobin 13.7, hematocrit 42.2, and platelets 390. Fingerstick blood glucose levels 125, 217, and 235. Sodium 135, potassium 3.7, chloride 101, CO2 of 27, anion gap 10.7, BUN 20, creatinine 0.72, estimated GFR greater than 60, glucose 142, calcium 8.3, total bilirubin 0.4, AST 21, ALT 32, alkaline phosphatase 103, total protein 6.7, albumin 2.2. No new microbiology or imaging results. ASSESSMENT AND PLAN: 1. Acute respiratory failure. Attempt to remove non-rebreather mask and keep Vapotherm and then wean Vapotherm as tolerated to high-flow oxygen. 2. Viral pneumonia due to COVID 19. Continue dexamethasone, complete as well as remdesivir. Continue azithromycin, Rocephin, neb treatments, Robitussin with codeine, Lovenox, vitamin C, zinc sulfate. 3. Uncontrolled type 2 diabetes mellitus with hyperglycemia. This morning, fingerstick blood glucose relatively low at 125. Currently, on Lantus insulin 24 units at bedtime. Continue sliding scale insulin. Monitor fingerstick blood glucose levels. 4. Controlled hypertension, on lisinopril, hydrochlorothiazide. Blood pressure 125/82, monitor. 5. Hypoalbuminemia. Albumin level 2.2. Maintain nutritional support with ADA diet. 6. Prophylaxis. Lovenox and Pepcid. BILLING CODE: [id number]. TIME SPENT: 35 minutes. Dictated by Maikel Storey, LUANNE Tacos Salguero MD [facility]/MODL /[id number]
[2020-03-11] MEDS: REMDESIVIR 100MG/NS 100ML 100 MG IV SCH (14:00)
[2020-03-11] MEDS: MEROPENEM 500MG/ NS 50ML 50 ML IV SCH ×2 (14:11→21:23)
--- NOTE | 2020-03-11 14:39 | Progress Note ---
DATE: SUBJECTIVE: The patient remains on Vapotherm. He was able to the eat something today. He still has some dyspnea. He has no new complaints. OBJECTIVE: VITAL SIGNS: The patient is afebrile. The vital signs are stable. The blood pressure is 141/82, saturation is 95% on Vapotherm. HEENT: Shows no facial swelling or erythema. CARDIAC: Reveals regular rate and rhythm with normal S1 and S2. LUNGS: Auscultation of lungs reveals rhonchus breath sounds bilaterally. There is no wheezing. ABDOMEN: Soft, nontender. There is no rebound or guarding. EXTREMITIES: Shows no leg edema or calf tenderness. There is no cyanosis or clubbing. SKIN: Shows no rashes. NEUROLOGICAL: Shows no focal abnormalities. LABORATORY DATA: BUN to creatinine ratio is normal. Other electrolytes are within normal limits. CBC is normal. RADIOGRAPHIC DATA: There is decreased airspace consolidation. ASSESSMENT: 1. Acute respiratory failure. 2. Viral pneumonia and coronavirus disease-19 infection. 3. Diabetes. 4. Hypertension. PLAN: 1. Continue Vapotherm. 2. Precedex. 3. Complete dexamethasone. 4. Complete antibiotics. 5. Monitor and control blood sugars. Ortega Mcginnis MD [facility]/MODL /[id number]
[2020-03-11] MEDS: DEXAMETHASONE PHOS 4MG/ML 6 MG in SODIUM CHLORIDE 0.9% 50ML 50 ML IV SCH (16:01)
[2020-03-11] MEDS: ATORVASTATIN 20 MG TAB PO SCH (19:54)
[2020-03-11] MEDS: INSULIN GLARGINE 100 UNITS/ML VIAL SQ SCH (19:59)
[2020-03-12] VITALS (27 sets, daily range): BP systolic 90–150; BP diastolic 62–89
[2020-03-12] MEDS: MEROPENEM 500MG/ NS 50ML 50 ML IV SCH ×3 (05:30→21:56)
[2020-03-12 05:41] LABS: BASOPHILS % 0.3 % (0.0-1.0); EOSINOPHILS # (AUTO) 0.1 (0.0-0.4); EOSINOPHILS % 0.9 % (0.0-6.0); HEMATOCRIT 42.4 % (38.2-49.6); HEMOGLOBIN 13.9 g/dL (14.0-18.0); LYMPHOCYTES # (AUTO) 1.7 (1.0-3.2); LYMPHOCYTES % 16.1 % (18.0-39.1); MEAN CORPUSCULAR HGB CONC 32.8 g/dL (31-35); MEAN CORPUSCULAR VOLUME 88.5 fL (81-99); MONOCYTES # (AUTO) 0.7 (0.2-0.8); MONOCYTES % 6.7 % (4.4-11.3); NEUTROPHILS # (AUTO) 7.7 (2.1-6.9); PLATELET COUNT 360 x10e3/uL (140-360); RED BLOOD COUNT 4.79 x10e6/uL (4.3-5.7); RED CELL DISTRIBUTION WIDTH 12.6 % (11.7-14.4)
[2020-03-12 06:09] LABS: ALANINE AMINOTRANSFERASE 45 IU/L (0-55); ALBUMIN/GLOBULIN RATIO 0.4 (0.8-2.0); ALKALINE PHOSPHATASE 101 IU/L (40-150); ANION GAP 10.3 mmol/L (8-16); BLOOD UREA NITROGEN 16 mg/dL (7-26); BUN/CREATININE RATIO 24 (6-25); CALCIUM 8.4 mg/dL (8.4-10.2); CARBON DIOXIDE 27 mmol/L (22-29); CHLORIDE 101 mmol/L (98-107); CREATININE, SERUM 0.68 mg/dL (0.72-1.25); EST GLOMERULAR FILTRATION RATE > 60 ML/MIN (60-); GLUCOSE 218 mg/dL (74-118); POTASSIUM 4.3 mmol/L (3.5-5.1); SODIUM 134 mmol/L (136-145)
[2020-03-12] MEDS: LISINOPRIL 10 MG TAB PO SCH (08:33)
[2020-03-12] MEDS: ENOXAPARIN SOD INJ 40 MG/0.4 ML SYR SC SCH ×2 (08:33→19:57)
[2020-03-12] MEDS: FAMOTIDINE 20 MG/2 ML VIAL IV SCH ×2 (08:33→19:57)
[2020-03-12] MEDS: ASCORBIC ACID 500 MG TAB PO SCH ×2 (08:33→17:24)
[2020-03-12] MEDS: ZINC SULFATE 220 MG CAP PO SCH ×2 (08:33→17:00)
[2020-03-12] MEDS: INSULIN REGULAR, HUMAN 100 UNIT/1 ML 3ML VIAL SQ SCH ×4 (08:36→19:56)
--- NOTE | 2020-03-12 08:48 | Diagnostic Imaging Report ---
EXAMINATION: CHEST SINGLE (PORTABLE) INDICATION: Viral pneumonia COMPARISON: Multiple prior chest radiograph most recently 03/11/2020 FINDINGS: LINES/TUBES:EKG leads overlie the chest. LUNGS:The lung volumes are low. Interval worsening of bilateral multifocal patchy and consolidative airspace opacities. PLEURA:No pleural effusion or pneumothorax. MEDIASTINUM:The cardiomediastinal silhouette appears unchanged in size and shape. BONES/SOFT TISSUES:No acute osseous injury. ABDOMEN:No free air under the diaphragm. IMPRESSION: Interval worsening (compared to 03/11/2020) of lung volumes and bilateral multifocal pneumonia, similar when compared to 03/10/2020. Signed by: Ed Rollins MD on 03/12/2020 8:45 AM
[2020-03-12] MEDS: VANCOMYCIN 1GM/NS 250 ML 250 ML IV SCH (11:23)
[2020-03-12] MEDS: DEXAMETHASONE PHOS 4MG/ML 6 MG in SODIUM CHLORIDE 0.9% 50ML 50 ML IV SCH (15:09)
--- NOTE | 2020-03-12 17:19 | Progress Note ---
DATE: SUBJECTIVE: The patient is still on Vapotherm at 40 L. He is on 100% oxygen. He has a non-rebreather on as well. PHYSICAL EXAMINATION: VITAL SIGNS: The blood pressure is 131/75, respiratory rate is 25, and saturation is 92%. HEENT: Shows no facial swelling or erythema. CARDIAC: Reveals regular rate and rhythm with normal S1 and S2. LUNGS: Auscultation of lungs reveals clear breath sounds bilaterally. There is no wheezing. ABDOMEN: Soft and nontender. There is no rebound or guarding. EXTREMITIES: Shows no leg edema or calf tenderness. There is no cyanosis or clubbing. SKIN: Shows no rashes. NEUROLOGICAL: Shows no focal abnormalities. LABORATORY DATA: White blood cell count is 10.3 and the hemoglobin is 13.9. The platelet count is 360. BUN to creatinine ratio is normal. Other electrolytes are within normal limits. Glucose is 151 to 215. RADIOGRAPHIC DATA: Chest x-ray shows bilateral infiltrates. IMPRESSION: 1. Acute respiratory failure. 2. Viral pneumonia and COVID-19 infection. PLAN: 1. Continue Vapotherm. 2. Place in prone position. 3. Complete antibiotics. 4. Lovenox. 5. Monitor and control blood sugars. 6. Monitor and control blood pressure. Ortega Mcginnis MD [facility]/NINAL /[id number]
[2020-03-12] MEDS: INSULIN GLARGINE 100 UNITS/ML VIAL SQ SCH (19:57)
[2020-03-12] MEDS: ATORVASTATIN 20 MG TAB PO SCH (19:57)
[2020-03-13] VITALS (25 sets, daily range): BP systolic 116–148; BP diastolic 66–97
[2020-03-13] MEDS: VANCOMYCIN 1GM/NS 250 ML 250 ML IV SCH ×2 (00:16→11:46)
[2020-03-13] MEDS: MEROPENEM 500MG/ NS 50ML 50 ML IV SCH ×3 (05:32→21:39)
[2020-03-13 05:38] LABS: BASOPHILS % 0.3 % (0.0-1.0); EOSINOPHILS # (AUTO) 0.1 (0.0-0.4); EOSINOPHILS % 1.3 % (0.0-6.0); HEMATOCRIT 42.6 % (38.2-49.6); HEMOGLOBIN 13.7 g/dL (14.0-18.0); LYMPHOCYTES # (AUTO) 2.2 (1.0-3.2); LYMPHOCYTES % 21.2 % (18.0-39.1); MEAN CORPUSCULAR HGB CONC 32.2 g/dL (31-35); MEAN CORPUSCULAR VOLUME 86.9 fL (81-99); MONOCYTES # (AUTO) 0.7 (0.2-0.8); MONOCYTES % 7.2 % (4.4-11.3); NEUTROPHILS # (AUTO) 7.1 (2.1-6.9); NEUTROPHILS % 69.2 % (38.7-80.0); PLATELET COUNT 390 x10e3/uL (140-360); RED CELL DISTRIBUTION WIDTH 12.7 % (11.7-14.4)
[2020-03-13 06:16] LABS: ALANINE AMINOTRANSFERASE 47 IU/L (0-55); ALBUMIN 1.9 g/dL (3.5-5.0); ALBUMIN/GLOBULIN RATIO 0.4 (0.8-2.0); ALKALINE PHOSPHATASE 94 IU/L (40-150); ANION GAP 10.1 mmol/L (8-16); BLOOD UREA NITROGEN 13 mg/dL (7-26); BUN/CREATININE RATIO 21 (6-25); CALCIUM 8.4 mg/dL (8.4-10.2); CARBON DIOXIDE 29 mmol/L (22-29); CHLORIDE 101 mmol/L (98-107); CREATININE, SERUM 0.62 mg/dL (0.72-1.25); EST GLOMERULAR FILTRATION RATE > 60 ML/MIN (60-); GLUCOSE 133 mg/dL (74-118); POTASSIUM 4.1 mmol/L (3.5-5.1); SODIUM 136 mmol/L (136-145)
[2020-03-13] MEDS: INSULIN REGULAR, HUMAN 100 UNIT/1 ML 3ML VIAL SQ SCH ×4 (07:30→20:12)
[2020-03-13] MEDS: FAMOTIDINE 20 MG/2 ML VIAL IV SCH ×2 (08:56→20:05)
[2020-03-13] MEDS: ZINC SULFATE 220 MG CAP PO SCH ×2 (09:02→16:57)
[2020-03-13] MEDS: ASCORBIC ACID 500 MG TAB PO SCH ×2 (09:02→16:57)
[2020-03-13] MEDS: LISINOPRIL 10 MG TAB PO SCH (09:02)
--- NOTE | 2020-03-13 10:48 | Progress Note ---
DATE: Pulmonary Critical Care progress Note SUBJECTIVE: The patient remains on Vapotherm at 40 L with 100%. He was able to eat some breakfast this morning. His saturations are in the mid 90s. PHYSICAL EXAMINATION: VITAL SIGNS: The patient is afebrile. The blood pressure is 138/90, saturation is 98%. The respiratory rate is 31, pulse is 70. HEENT: Shows no facial swelling or erythema. The patient is on Vapotherm at 40 L. LYMPHATIC: Shows no submandibular, cervical, or supraclavicular adenopathy. CARDIAC: Reveals regular rate and rhythm with normal S1 and S2. LUNGS: Auscultation of lungs reveals crackles at the bases. There is no wheezing. ABDOMEN: Soft and nontender. There is no rebound or guarding. EXTREMITIES: Shows no leg edema or calf tenderness. There is no cyanosis or clubbing. SKIN: Shows no rashes. NEUROLOGICAL: Shows no focal abnormalities. LABORATORY DATA: CBC is within normal limits. BUN to creatinine ratio is normal. Electrolytes are within normal limits. Albumin is 1.9. RADIOGRAPHIC DATA: Chest x-ray shows bilateral infiltrates. IMPRESSION: 1. Acute respiratory failure. 2. COVID-19 and viral pneumonia. 3. Fatigue. PLAN: 1. Continue Vapotherm. 2. Continue Lovenox. 3. Complete Decadron. 4. Complete antibiotics. 5. Monitor and control blood pressure. Ortega Mcginnis MD [facility]/MODL /[id number]
[2020-03-13] MEDS ORDERED: DEXAMETHASONE SOD PHOS INJ 4 MG/ML VIAL IV SCH (15:00)
--- NOTE | 2020-03-13 18:20 | Progress Note ---
DATE: SUBJECTIVE: Mr. Lewis remains in intensive care unit. He is on Vapotherm at 40 L with 100%. He is able to eat, O2 sats 90. PHYSICAL EXAMINATION: GENERAL: Currently alert. VITAL SIGNS: Stable. Currently afebrile. HEENT: Icteric. NECK: Supple. CHEST: Crackles. HEART: S1 and S2. No S3, S4, or murmurs. ABDOMEN: Soft. IMPRESSION: COVID-19, respiratory failure, debility. Continue Lovenox to finish 10 days of Decadron, this is day #9, stop tomorrow. He is currently on meropenem, which was started as well with vancomycin . We will follow. MD ANDERS Tapia/AMARA /[id number]
[2020-03-13] MEDS: ENOXAPARIN SOD INJ 40 MG/0.4 ML SYR SC SCH (20:05)
[2020-03-13] MEDS: ATORVASTATIN 20 MG TAB PO SCH (20:05)
[2020-03-13] MEDS: INSULIN GLARGINE 100 UNITS/ML VIAL SQ SCH (20:13)
[2020-03-14] VITALS (25 sets, daily range): BP systolic 116–155; BP diastolic 62–98
[2020-03-14] MEDS: VANCOMYCIN 1GM/NS 250 ML 250 ML IV SCH ×3 (00:52→23:39)
[2020-03-14 04:58] LABS: BASOPHILS % 0.2 % (0.0-1.0); EOSINOPHILS # (AUTO) 0.2 (0.0-0.4); EOSINOPHILS % 1.4 % (0.0-6.0); HEMOGLOBIN 13.6 g/dL (14.0-18.0); LYMPHOCYTES # (AUTO) 2.2 (1.0-3.2); LYMPHOCYTES % 20.6 % (18.0-39.1); MEAN CORPUSCULAR HEMOGLOBIN 28.2 pg (28-32); MEAN CORPUSCULAR HGB CONC 32.4 g/dL (31-35); MEAN CORPUSCULAR VOLUME 87.1 fL (81-99); MONOCYTES # (AUTO) 0.7 (0.2-0.8); MONOCYTES % 6.8 % (4.4-11.3); NEUTROPHILS # (AUTO) 7.5 (2.1-6.9); NEUTROPHILS % 70.4 % (38.7-80.0); PLATELET COUNT 397 x10e3/uL (140-360); RED BLOOD COUNT 4.82 x10e6/uL (4.3-5.7); RED CELL DISTRIBUTION WIDTH 12.5 % (11.7-14.4)
[2020-03-14] MEDS: MEROPENEM 500MG/ NS 50ML 50 ML IV SCH ×3 (05:15→21:15)
[2020-03-14 05:20] LABS: ALANINE AMINOTRANSFERASE 46 IU/L (0-55); ALBUMIN/GLOBULIN RATIO 0.5 (0.8-2.0); ALKALINE PHOSPHATASE 92 IU/L (40-150); ANION GAP 9.1 mmol/L (8-16); BLOOD UREA NITROGEN 15 mg/dL (7-26); BUN/CREATININE RATIO 26 (6-25); CALCIUM 8.5 mg/dL (8.4-10.2); CARBON DIOXIDE 30 mmol/L (22-29); CHLORIDE 101 mmol/L (98-107); CREATININE, SERUM 0.57 mg/dL (0.72-1.25); EST GLOMERULAR FILTRATION RATE > 60 ML/MIN (60-); GLUCOSE 132 mg/dL (74-118); POTASSIUM 4.1 mmol/L (3.5-5.1); SODIUM 136 mmol/L (136-145)
[2020-03-14] MEDS: INSULIN REGULAR, HUMAN 100 UNIT/1 ML 3ML VIAL SQ SCH ×4 (07:30→21:14)
--- NOTE | 2020-03-14 08:03 | Diagnostic Imaging Report ---
Examination: Single AP view of the chest. COMPARISON: Portable chest 03/12/2020 INDICATION: Respiratory failure, viral pneumonia IMPRESSION: 1. Lines and Tubes: None 2. Hypoinflated lungs. No interval change in diffuse bilateral interstitial and alveolar opacities, consistent with multifocal viral pneumonia. 3. Cardiomediastinal silhouette is normal. Central venous crowding due to low lung volumes. 4. No acute bony abnormalities. Signed by: Dr. Felix Yo M.D. on 03/14/2020 7:59 AM
[2020-03-14] MEDS: FAMOTIDINE 20 MG/2 ML VIAL IV SCH ×2 (09:03→21:12)
[2020-03-14] MEDS: LISINOPRIL 10 MG TAB PO SCH (09:04)
[2020-03-14] MEDS: ZINC SULFATE 220 MG CAP PO SCH ×2 (09:04→17:28)
[2020-03-14] MEDS: ENOXAPARIN SOD INJ 40 MG/0.4 ML SYR SC SCH ×2 (09:04→21:12)
[2020-03-14] MEDS: ASCORBIC ACID 500 MG TAB PO SCH ×2 (09:04→17:28)
--- NOTE | 2020-03-14 15:54 | Progress Note ---
DATE: Pulmonary Critical Care Progress Note SUBJECTIVE: The patient remains on Vapotherm. He is not having nausea or vomiting. He does not complain of fevers. PHYSICAL EXAMINATION: VITAL SIGNS: The blood pressure is 125/70, saturation is 96% on a Vapotherm at 40 L and 100% FiO2. HEENT: No facial swelling or erythema. CARDIAC: Regular rate and rhythm with normal S1, S2. LUNGS: Auscultation of the lungs shows crackles at the bases. There is no wheezing. ABDOMEN: Soft, nontender. There is no rebound or guarding. EXTREMITIES: No leg edema or calf tenderness. There is no cyanosis or clubbing. SKIN: No rashes. NEUROLOGICAL: No focal abnormalities. LABORATORY DATA: White blood cell count is 10.6 and hemoglobin is 13.6. The platelet count is 397. The BUN to creatinine ratio is normal. The other electrolytes are within normal limits. The albumin is 2.0. Blood sugars 132. RADIOGRAPHIC DATA: Chest x-ray shows bilateral infiltrates. IMPRESSION: 1. Acute respiratory failure. 2. Coronavirus disease-19 and viral pneumonia. PLAN: 1. Continue Vapotherm. 2. Continue Lovenox. 3. Complete Decadron. 4. Complete antibiotics. 5. Attention to nutritional status. Ortega Mcginnis MD [facility]/MODL /[id number]
[2020-03-14 16:56] LABS: ABG HCO3 29 mmol/L (22-26); ABG PCO2 41 mmHg (35-45); ABG PH 7.45 (7.35-7.45); ABG PO2 94 mmHg (80-105)
[2020-03-14] MEDS: ATORVASTATIN 20 MG TAB PO SCH (21:12)
[2020-03-14] MEDS: INSULIN GLARGINE 100 UNITS/ML VIAL SQ SCH (21:15)
[2020-03-15] VITALS (23 sets, daily range): BP systolic 117–138; BP diastolic 47–85
[2020-03-15] MEDS: MEROPENEM 500MG/ NS 50ML 50 ML IV SCH ×3 (05:15→23:16)
[2020-03-15 05:53] LABS: BASOPHILS % 0.3 % (0.0-1.0); EOSINOPHILS # (AUTO) 0.3 (0.0-0.4); EOSINOPHILS % 2.4 % (0.0-6.0); HEMATOCRIT 39.8 % (38.2-49.6); HEMOGLOBIN 13.2 g/dL (14.0-18.0); LYMPHOCYTES # (AUTO) 1.8 (1.0-3.2); LYMPHOCYTES % 15.2 % (18.0-39.1); MEAN CORPUSCULAR HEMOGLOBIN 29.6 pg (28-32); MEAN CORPUSCULAR HGB CONC 33.2 g/dL (31-35); MEAN CORPUSCULAR VOLUME 89.2 fL (81-99); MONOCYTES # (AUTO) 0.8 (0.2-0.8); NEUTROPHILS # (AUTO) 8.7 (2.1-6.9); NEUTROPHILS % 74.7 % (38.7-80.0); PLATELET COUNT 341 x10e3/uL (140-360); RED BLOOD COUNT 4.46 x10e6/uL (4.3-5.7); RED CELL DISTRIBUTION WIDTH 12.8 % (11.7-14.4)
[2020-03-15 06:31] LABS: ALANINE AMINOTRANSFERASE 57 IU/L (0-55); ALBUMIN/GLOBULIN RATIO 0.5 (0.8-2.0); ALKALINE PHOSPHATASE 102 IU/L (40-150); ANION GAP 10.6 mmol/L (8-16); BLOOD UREA NITROGEN 15 mg/dL (7-26); BUN/CREATININE RATIO 25 (6-25); CALCIUM 8.5 mg/dL (8.4-10.2); CARBON DIOXIDE 30 mmol/L (22-29); CHLORIDE 98 mmol/L (98-107); CREATININE, SERUM 0.59 mg/dL (0.72-1.25); EST GLOMERULAR FILTRATION RATE > 60 ML/MIN (60-); GLUCOSE 92 mg/dL (74-118); POTASSIUM 3.6 mmol/L (3.5-5.1); SODIUM 135 mmol/L (136-145)
[2020-03-15] MEDS: INSULIN REGULAR, HUMAN 100 UNIT/1 ML 3ML VIAL SQ SCH ×4 (07:30→22:26)
[2020-03-15] MEDS: ASCORBIC ACID 500 MG TAB PO SCH ×2 (08:48→17:12)
[2020-03-15] MEDS: FAMOTIDINE 20 MG/2 ML VIAL IV SCH ×2 (08:48→21:14)
[2020-03-15] MEDS: ZINC SULFATE 220 MG CAP PO SCH ×2 (08:48→17:12)
[2020-03-15] MEDS: ENOXAPARIN SOD INJ 40 MG/0.4 ML SYR SC SCH ×2 (08:48→21:14)
[2020-03-15] MEDS: LISINOPRIL 10 MG TAB PO SCH (08:48)
--- NOTE | 2020-03-15 10:53 | Progress Note ---
DATE: SUBJECTIVE: The patient is afebrile. He is still on a Vapotherm at 40 L with 100% FiO2, but is saturating well. He is not complaining of nausea or vomiting. He has no abdominal pain. PHYSICAL EXAMINATION: VITAL SIGNS: The blood pressure is 137/80 and the saturation is 98%. The pulse is 86. HEENT: Shows no facial swelling or erythema. CARDIAC: Reveals regular rate and rhythm with normal S1 and S2. LUNGS: Auscultation of lungs reveals crackles at the bases. There is no wheezing. ABDOMEN: Soft and nontender. There is no rebound or guarding. EXTREMITIES: Shows no leg edema or calf tenderness. There is no cyanosis or clubbing. SKIN: Shows no rashes. NEUROLOGICAL: Shows no focal abnormalities. LABORATORY DATA: White blood cell count is 11.6, and hemoglobin is 13.2. The platelet count is 341. BUN to creatinine ratio is normal. Other electrolytes are within normal limits. Albumin is 2.0. IMPRESSION: 1. Acute respiratory failure. 2. Viral pneumonia and COVID-19 infection. 3. Diabetes. PLAN: 1. Continue Vapotherm and wean as tolerated. 2. Continue Lovenox. 3. Complete Decadron. 4. Complete antibiotics. 5. Monitor and control blood sugars. Ortega Mcginnis MD [facility]/MODL /[id number]
--- NOTE | 2020-03-15 11:18 | Progress Note ---
DATE: SUBJECTIVE: Discussed with Dr. De Leon. Please refer to chart for information. REVIEW OF SYSTEMS: Feels better. Clinically, no acute distress, slowly improving. The patient is off non-rebreather and remains on Vapotherm at 40 L with an O2 saturation of 98%. Supine position, comfortable. No acute distress. PHYSICAL EXAMINATION: VITAL SIGNS: Temperature off 98.8, pulse 86, respirations 20, blood pressure 137/80. GENERAL: Comfortable in bed, supine position, on Vapotherm, off non-rebreather, slowly improving. CV: S1, S2. CHEST: Equal expansion. Decreased breath sounds. ABDOMEN: Soft. Nontender. No distention. HEENT: Moist. No pallor. No JVD. EXTREMITIES: Weak. Moves all. MEDICATIONS: Lovenox, zinc sulfate, vitamin C, meropenem, vancomycin, vitamin D. The patient is status post dexamethasone, Zithromax, and Rocephin. LABORATORY STUDIES: White count of 11.61, hemoglobin 13.2, platelet 341. Sodium 135, potassium 3.6, creatinine 0.59. Serology; coronavirus PCR detected on 03/04. Microbiology; no new microbiology. Radiology; no new radiology. ASSESSMENT AND PLAN: 1. COVID-19 pneumonia. 2. Concern superimposed bacterial pneumonia. 3. Respiratory failure. 4. Status post dexamethasone. 5. Continue vancomycin and meropenem for 5 days, started on 03/11. Today, is 03/15, can stop vancomycin and meropenem after today. Continue with Vapotherm. Monitor the patient clinically, follow up with the labs. Nutritional support. Please refer to chart for more information. Dictated by Papi Leone PA-C (Al) Jeffry De Leon MD /MODL /[id number]
[2020-03-15] MEDS: CHOLECALCIFEROL 400 UNIT TAB PO SCH (11:46)
[2020-03-15] MEDS: VANCOMYCIN 1GM/NS 250 ML 250 ML IV SCH (12:49)
[2020-03-15] MEDS: INSULIN GLARGINE 100 UNITS/ML VIAL SQ SCH (22:28)
[2020-03-15] MEDS: ATORVASTATIN 20 MG TAB PO SCH (23:16)
[2020-03-16] VITALS (28 sets, daily range): BP systolic 116–145; BP diastolic 64–92
[2020-03-16] MEDS: VANCOMYCIN 1GM/NS 250 ML 250 ML IV SCH ×2 (00:52→12:00)
[2020-03-16 05:52] LABS: BASOPHILS # (AUTO) 0.1 (0.0-0.1); BASOPHILS % 0.5 % (0.0-1.0); EOSINOPHILS # (AUTO) 0.3 (0.0-0.4); EOSINOPHILS % 2.8 % (0.0-6.0); HEMATOCRIT 39.7 % (38.2-49.6); HEMOGLOBIN 12.6 g/dL (14.0-18.0); LYMPHOCYTES # (AUTO) 2.4 (1.0-3.2); LYMPHOCYTES % 20.2 % (18.0-39.1); MEAN CORPUSCULAR HEMOGLOBIN 27.9 pg (28-32); MEAN CORPUSCULAR HGB CONC 31.7 g/dL (31-35); MONOCYTES # (AUTO) 0.7 (0.2-0.8); MONOCYTES % 5.9 % (4.4-11.3); NEUTROPHILS # (AUTO) 8.2 (2.1-6.9); PLATELET COUNT 407 x10e3/uL (140-360); RED BLOOD COUNT 4.51 x10e6/uL (4.3-5.7); RED CELL DISTRIBUTION WIDTH 12.6 % (11.7-14.4)
[2020-03-16 06:03] LABS: ALANINE AMINOTRANSFERASE 47 IU/L (0-55); ALBUMIN 1.9 g/dL (3.5-5.0); ALBUMIN/GLOBULIN RATIO 0.4 (0.8-2.0); ALKALINE PHOSPHATASE 98 IU/L (40-150); BLOOD UREA NITROGEN 13 mg/dL (7-26); BUN/CREATININE RATIO 23 (6-25); CALCIUM 8.4 mg/dL (8.4-10.2); CARBON DIOXIDE 32 mmol/L (22-29); CHLORIDE 99 mmol/L (98-107); CREATININE, SERUM 0.57 mg/dL (0.72-1.25); EST GLOMERULAR FILTRATION RATE > 60 ML/MIN (60-); GLUCOSE 137 mg/dL (74-118); SODIUM 135 mmol/L (136-145)
[2020-03-16] MEDS: MEROPENEM 500MG/ NS 50ML 50 ML IV SCH ×3 (06:29→21:23)
--- NOTE | 2020-03-16 09:14 | Progress Note ---
DATE: CONSULTING PHYSICIANS: 1. Dr. Jeffry De Leon, with Internal Medicine. 2. Dr. Ortega Mcginnis, with Pulmonology Critical Care Medicine. The patient remains in COVID ICU, bed 19. SUBJECTIVE: Mild tachypnea with respiratory rate in the low 30s. Remains on Vapotherm. OBJECTIVE: VITAL SIGNS: Temperature 96.8, heart rate 95, blood pressure 143/80, respirations 12, oxygen saturation 95%. GENERAL: Supine. LUNGS: Bibasilar crackles without wheezing. Currently on Vapotherm 40 L/minute, FiO2 of 100%, the non-rebreather mask is currently off . HEENT: EOMI. NECK: Supple. No JVD. CARDIOVASCULAR: Regular rate and rhythm. No murmur. ABDOMEN: Bowel sounds positive. Soft, nontender. No guarding. EXTREMITIES: Without pitting edema. No clubbing, cyanosis, or marked swelling. NEUROLOGICAL: GCS 15. Nonfocal. LABORATORY DATA: WBC is 11.28, hemoglobin 13.7, hematocrit 42.4, platelets 388. Sodium 135, potassium 4.2, chloride 104, CO2 of 26, anion gap 9.2, BUN 15 and creatinine 0.65, estimated GFR greater than 60, glucose 199, calcium 8.5, total bilirubin 0.4, AST 18, ALT 29, alkaline phosphatase 98, total protein 6.6, albumin 2.0. Fingerstick blood glucose levels 167, 209. IMAGING: Chest x-ray done this morning shows increased bilateral patchy opacities compatible with multifocal pneumonia. ASSESSMENT AND PLAN: 1. Acute respiratory failure. Wean Vapotherm to high-flow oxygen as tolerated. 2. Multifocal viral community-acquired pneumonia due to COVID-19, present on admission. Per ID, azithromycin to be stopped. Continue remdesivir, Rocephin, dexamethasone, Lovenox, zinc sulfate, vitamin C, vitamin D, Robitussin with codeine. 3. Uncontrolled type 2 diabetes mellitus with hyperglycemia. Continue sliding scale insulin and adjust Lantus insulin as needed. Monitor fingerstick blood glucose levels. 4. Controlled hypertension. Continue lisinopril/hydrochlorothiazide and p.r.n. IV metoprolol tartrate. Blood pressure 143/80. Monitor. 5. Mild hyponatremia, sodium 135. Monitor. 6. Prophylaxis. Lovenox and Pepcid. Billing code [id number]. Time spent 35 minutes. Dictated by Maikel Storey, DISPATCHER [employer] MD [facility]/NINAL /[id number]
--- NOTE | 2020-03-16 09:48 | Progress Note ---
DATE: 03/11/2020 SUBJECTIVE: The patient is requiring more oxygen today. Oxygen saturations 93% to 97% and is on Vapotherm along with non-rebreather mask. He did eat some today. OBJECTIVE: VITAL SIGNS: Temperature 97.6, heart rate 62, blood pressure 128/77, respiratory rate 30, oxygen saturation 98%. GENERAL: Supine. LUNGS: Bibasilar crackles, currently on Vapotherm 40 L/minute. FiO2 of 100% plus non-rebreather mask. HEENT: EOMI. NECK: Supple. CARDIOVASCULAR: Regular rate and rhythm. No murmur. ABDOMEN: Bowel sounds positive. Soft, nontender. EXTREMITIES: Without pitting edema. No clubbing, cyanosis, or signs of DVT. NEUROLOGICAL: GCS 15. Nonfocal. LABORATORY DATA: WBC is 11.69, hemoglobin 13.7, hematocrit 40.5, platelets 357. Sodium 135, potassium 4.3, chloride 100, CO2 29, BUN 16, creatinine 0.73, estimated GFR greater than 60, glucose be 169. Fingerstick blood glucose levels 121, 191. Calcium 8.7, phosphorus 3.9, magnesium 2.1, total bilirubin 0.4, AST 23, ALT 32, alkaline phosphatase 100, total protein 6.9, albumin 2.1. Chest x-ray today shows decreased airspace consolidations with improved aeration. ASSESSMENT AND PLAN: 1. Acute respiratory failure. Wean oxygen as tolerated. Attempt to remove the non-rebreather mask and keep Vapotherm only. Pulmonology follows. 2. Viral pneumonia due to coronavirus disease-2019. Continue dexamethasone, Remdesivir, Lovenox, zinc sulfate, vitamin D, vitamin C, Robitussin with codeine. Azithromycin and Rocephin have been stopped by Infectious Disease. Merrem and vancomycin have been started. 3. Uncontrolled type 2 diabetes mellitus with hyperglycemia. Adjust Lantus as needed. Serum glucose 168. Continue sliding scale insulin. Monitor fingerstick blood glucose levels. 4. Controlled hypertension. Blood pressure 128/77. Continue lisinopril/hydrochlorothiazide. Monitor. 5. Hypoalbuminemia. Albumin level 2.1. Maintain nutritional support with ADA diet. 6. Prophylaxis. Lovenox and Pepcid. Billing code 39352. Time spent 35 minutes. Dictated by Maikel Storey, LUANNE MD [facility]/AMARA /[id number]
--- NOTE | 2020-03-16 09:58 | Progress Note ---
DATE: 03/12/2020 SUBJECTIVE: The patient does well with incentive spirometry. He tends to desat at night with sleep out of bed and standing yesterday on 03/11. No BM in six days per RN, but then again not eating that much. OBJECTIVE: VITAL SIGNS: Temperature 98.1, pulse 79, blood pressure 140/82, respirations 17, oxygen saturation 95%. GENERAL: Supine. Not prone. LUNGS: With bibasilar crackles. Currently, on Vapotherm 40 L/minute, FiO2 of 100%, as well as non-rebreather mask with oxygen saturation 99% during encounter. HEENT: EOMI. NECK: Supple. No JVD. CARDIOVASCULAR: Regular rate and rhythm. No murmur. ABDOMEN: Bowel sounds positive. Soft, nontender. EXTREMITIES: Without pitting edema. No clubbing, cyanosis, or signs of DVT. He is wearing SCDs. NEUROLOGIC: GCS 15, nonfocal. LABORATORY DATA: Sodium 134, potassium 4.3, chloride 101, CO2 of 27, BUN 16, creatinine 0.68, estimated GFR 60, glucose 218, calcium 8.4, total bilirubin 0.4, AST 26, ALT 85, alkaline phosphatase 101, total protein 6.7, albumin 2.0. WBC 10.3, hemoglobin 13.9, hematocrit 42.4, platelets 360. IMAGING DATA: Chest x-ray today showed interval worsening compared to 03/11 of lung volumes and bilateral multifocal pneumonia, similar when compared to 03/10. ASSESSMENT AND PLAN: 1. Acute respiratory failure. Continue Vapotherm and non-rebreather mask, given chest x-ray results per Pulmonology, . 2. Multifocal viral community-acquired pneumonia due to coronavirus disease-19, present on admission. Continue dexamethasone. Complete remdesivir. Continue Lovenox, vitamin C, vitamin D, zinc sulfate, Robitussin with codeine. Continue vancomycin and Merrem per Infectious Disease. 3. Uncontrolled type 2 diabetes mellitus with hyperglycemia. Serum glucose 218. Fingerstick blood glucose level 151 and 216. Continue Lantus and sliding scale insulin. Monitor glucose. 4. Controlled hypertension. Blood pressure 140/82. Continue lisinopril 10 mg daily and monitor blood pressure. 5. Hypoalbuminemia. Maintain nutritional support with ADA diet. 6. Mild hyponatremia. Sodium level 134. Monitor. 7. Prophylaxis. Lovenox and Pepcid. Billing code 87485. Time spent 35 minutes. Dictated by Maikel Storey, WELFARE CASE WORKER MD MIL[facility] Leung/MODL /[id number]
[2020-03-16] MEDS: INSULIN REGULAR, HUMAN 100 UNIT/1 ML 3ML VIAL SQ SCH ×4 (10:04→21:23)
[2020-03-16] MEDS: CHOLECALCIFEROL 400 UNIT TAB PO SCH (10:05)
[2020-03-16] MEDS: ASCORBIC ACID 500 MG TAB PO SCH ×2 (10:05→18:35)
[2020-03-16] MEDS: LISINOPRIL 10 MG TAB PO SCH (10:05)
[2020-03-16] MEDS: FAMOTIDINE 20 MG/2 ML VIAL IV SCH ×2 (10:05→21:23)
[2020-03-16] MEDS: ZINC SULFATE 220 MG CAP PO SCH ×2 (10:05→18:35)
[2020-03-16] MEDS: ENOXAPARIN SOD INJ 40 MG/0.4 ML SYR SC SCH ×2 (10:05→21:23)
--- NOTE | 2020-03-16 16:31 | Progress Note ---
DATE: SUBJECTIVE: The patient is doing better. He is sitting upright in a chair. He is eating. He has less dyspnea and less congestion. PHYSICAL EXAMINATION: VITAL SIGNS: The blood pressure is 135/81 and saturation is 93% on a Vapotherm of 40 L with 100%. The pulse is 100 to 105. Respiratory rate is in the mid 20s. HEENT: Shows no facial swelling or erythema. CARDIAC: Reveals regular rate and rhythm. Normal S1 and S2. LUNGS: Auscultation of lungs reveals rhonchorous breath sounds bilaterally. There is no wheezing. ABDOMEN: Soft, nontender. There is no rebound or guarding. EXTREMITIES: Shows no leg edema or calf tenderness. There is no cyanosis or clubbing. SKIN: Shows no rashes. NEUROLOGIC: Shows no focal abnormalities. LABORATORY DATA: White blood cell count is 11.6, and hemoglobin is 12.6. The platelet count is 407. BUN to creatinine ratio is 13 to 0.57. The other electrolytes are within normal limits. Albumin is 1.9. IMPRESSION: 1. Acute respiratory failure. 2. Viral pneumonia and coronavirus disease-19 infection. 3. Diabetes. PLAN: 1. Continue to wean Vapotherm. 2. Continue Lovenox. 3. Complete Decadron. 4. Complete antibiotics. 5. Monitor and control blood sugars. Ortega Mcginnis MD [facility]/MODL /[id number]
--- NOTE | 2020-03-16 16:37 | Progress Note ---
DATE: SUBJECTIVE: Mr. Lewis remains in intensive care unit. The patient is comfortable. OBJECTIVE: VITAL SIGNS: Stable, afebrile. HEENT: Not icteric. NECK: Supple. CHEST: Few crackles. HEART: S1 and S2. No S3, S4, or murmur. ABDOMEN: Soft. IMPRESSION: Respiratory failure, on Vapotherm and nonbreather, community-acquired pneumonia, COVID-19, and hypertension. The patient, #12 of hospitalization. He is currently on vancomycin, Lovenox, Prinivil, meropenem, and insulin. White count is 11.6. Sodium 135. PLAN: To continue current choice of antibiotic for a total of 7 days and reassess. MD ANDERS Tapia/MODL /[id number]
[2020-03-16] MEDS: INSULIN GLARGINE 100 UNITS/ML VIAL SQ SCH (21:21)
[2020-03-16] MEDS: ATORVASTATIN 20 MG TAB PO SCH (21:23)
[2020-03-17] VITALS (27 sets, daily range): BP systolic 114–135; BP diastolic 64–85
[2020-03-17] MEDS: VANCOMYCIN 1GM/NS 250 ML 250 ML IV SCH ×2 (00:21→13:17)
[2020-03-17] MEDS: MEROPENEM 500MG/ NS 50ML 50 ML IV SCH (05:40)
[2020-03-17 06:13] LABS: BASOPHILS # (AUTO) 0.1 (0.0-0.1); BASOPHILS % 0.5 % (0.0-1.0); EOSINOPHILS # (AUTO) 0.3 (0.0-0.4); HEMATOCRIT 38.8 % (38.2-49.6); HEMOGLOBIN 12.2 g/dL (14.0-18.0); LYMPHOCYTES # (AUTO) 2.2 (1.0-3.2); LYMPHOCYTES % 23.1 % (18.0-39.1); MEAN CORPUSCULAR HEMOGLOBIN 27.7 pg (28-32); MEAN CORPUSCULAR HGB CONC 31.4 g/dL (31-35); MEAN CORPUSCULAR VOLUME 88.2 fL (81-99); MONOCYTES # (AUTO) 0.7 (0.2-0.8); MONOCYTES % 7.1 % (4.4-11.3); NEUTROPHILS # (AUTO) 6.2 (2.1-6.9); NEUTROPHILS % 65.8 % (38.7-80.0); PLATELET COUNT 369 x10e3/uL (140-360); RED CELL DISTRIBUTION WIDTH 12.5 % (11.7-14.4)
[2020-03-17 06:37] LABS: ALANINE AMINOTRANSFERASE 48 IU/L (0-55); ALBUMIN/GLOBULIN RATIO 0.5 (0.8-2.0); ALKALINE PHOSPHATASE 91 IU/L (40-150); ANION GAP 10.1 mmol/L (8-16); BLOOD UREA NITROGEN 14 mg/dL (7-26); BUN/CREATININE RATIO 26 (6-25); CALCIUM 8.8 mg/dL (8.4-10.2); CARBON DIOXIDE 30 mmol/L (22-29); CHLORIDE 99 mmol/L (98-107); CREATININE, SERUM 0.54 mg/dL (0.72-1.25); EST GLOMERULAR FILTRATION RATE > 60 ML/MIN (60-); GLUCOSE 127 mg/dL (74-118); POTASSIUM 4.1 mmol/L (3.5-5.1); SODIUM 135 mmol/L (136-145)
--- NOTE | 2020-03-17 06:49 | Diagnostic Imaging Report ---
Examination: Single AP view of the chest. COMPARISON: Portable chest 03/14/2020 INDICATION: Shortness of breath, COVID IMPRESSION: 1. Lines and Tubes: None 2. Hypoinflated lungs. Improved aeration of bilateral upper lobes. Otherwise, no change in bilateral interstitial and alveolar opacities consistent with multifocal pneumonia. 3. Cardiomediastinal silhouette is normal. Central venous crowding. 4. No acute bony abnormalities. Signed by: Dr. Felix Yo M.D. on 03/17/2020 6:46 AM
[2020-03-17] MEDS: INSULIN REGULAR, HUMAN 100 UNIT/1 ML 3ML VIAL SQ SCH ×4 (07:30→22:11)
[2020-03-17] MEDS ORDERED: MELATONIN 5 MG TABLET PO PRN (08:45)
--- NOTE | 2020-03-17 10:15 | Progress Note ---
DATE: SUBJECTIVE: The patient is asymptomatic and improved. He was sitting in a chair. His FiO2 on his Vapotherm is decreased to 65% and his liter flow is at 37. PHYSICAL EXAMINATION: VITAL SIGNS: The patient is afebrile, blood pressure is 124/73, saturation is 92% to 93% on the above settings. HEENT: Shows no facial swelling. CARDIAC: Reveals regular rate and rhythm with normal S1 and S2. LUNGS: Auscultation of lungs reveals crackles in the bases. There is no wheezing. ABDOMEN: Soft and nontender. There is no rebound or guarding. EXTREMITIES: Show no leg edema or calf tenderness. There is no cyanosis or clubbing. SKIN: Shows no rashes. NEUROLOGICAL: Shows no focal abnormalities. LABORATORY DATA: White blood cell count is 9.4, hemoglobin is 12.2, and platelet count is 364. BUN to creatinine ratio are 14 and 0.54 and sodium is 135. Blood sugar is 200 to 300 and albumin is 2. RADIOGRAPHIC DATA: Chest x-ray shows improved aeration of the lungs. IMPRESSION: 1. Acute respiratory failure. 2. Viral pneumonia and coronavirus disease 2019 infection. 3. Diabetes. PLAN: 1. Continue to wean Vapotherm. 2. Continue to monitor and control blood sugars. 3. Complete Decadron. 4. Complete Lovenox. 5. Complete antibiotics. MD MONISHA Agrawal/AMARA /[id number]
[2020-03-17] MEDS: FAMOTIDINE 20 MG/2 ML VIAL IV SCH ×2 (10:23→21:44)
[2020-03-17] MEDS: CHOLECALCIFEROL 400 UNIT TAB PO SCH (10:23)
[2020-03-17] MEDS: ZINC SULFATE 220 MG CAP PO SCH ×2 (10:23→19:08)
[2020-03-17] MEDS: ENOXAPARIN SOD INJ 40 MG/0.4 ML SYR SC SCH ×2 (10:23→21:44)
[2020-03-17] MEDS: ASCORBIC ACID 500 MG TAB PO SCH ×2 (10:23→19:08)
[2020-03-17] MEDS: LISINOPRIL 10 MG TAB PO SCH (10:23)
--- NOTE | 2020-03-17 17:01 | Progress Note ---
DATE: SUBJECTIVE: Mr. Lewis is doing better. There are no new complaints. Remains in intensive care unit. He is on 52%. OBJECTIVE: HEENT: Negative. PULMONARY: Negative. CARDIAC: Negative. LABORATORY DATA: Reviewed. Chart reviewed. ASSESSMENT: 1. Respiratory failure. 2. Diabetes. PLAN: Continue supportive care. He is off antibiotics now. We will stop his vancomycin and meropenem within 6 days. Observe the patient clinically. Jeffry De Leon MD [facility]/MODL /[id number]
[2020-03-17] MEDS: ATORVASTATIN 20 MG TAB PO SCH (21:44)
[2020-03-17] MEDS: INSULIN GLARGINE 100 UNITS/ML VIAL SQ SCH (22:12)
--- NOTE | 2020-03-17 23:29 | NUR ---
Notified Dr. Carlie Mcginnis of poor venous access, new order to place PICC line. PICC team here and consent obtained from PT.
[2020-03-18] VITALS (24 sets, daily range): BP systolic 119–151; BP diastolic 68–91
--- NOTE | 2020-03-18 00:51 | Diagnostic Imaging Report ---
Examination: Single AP view of the chest. COMPARISON: AP chest 03/17/2020 INDICATION: PICC line placement IMPRESSION: 1. Lines and Tubes: Interval placement of right-sided PICC line, which is distal tip projecting in the proximal right atrium. 2. Lungs are hypoinflated. Diffuse bilateral interstitial opacities extending from the annamarie, likely representing interstitial pulmonary edema. Left retrocardiac opacity, which may reflect alveolar edema or pneumonia 3. Prominence of the cardiac silhouette, partly due to AP projection and low lung volumes. Marked central pulmonary venous congestion. 4. No acute bony abnormalities. Signed by: Dr. Felix Yo M.D. on 03/18/2020 12:47 AM
[2020-03-18 06:30] LABS: BASOPHILS # (AUTO) 0.1 (0.0-0.1); BASOPHILS % 0.7 % (0.0-1.0); EOSINOPHILS # (AUTO) 0.3 (0.0-0.4); EOSINOPHILS % 3.5 % (0.0-6.0); HEMATOCRIT 36.8 % (38.2-49.6); HEMOGLOBIN 11.7 g/dL (14.0-18.0); LYMPHOCYTES # (AUTO) 1.8 (1.0-3.2); LYMPHOCYTES % 21.5 % (18.0-39.1); MEAN CORPUSCULAR HEMOGLOBIN 28.5 pg (28-32); MEAN CORPUSCULAR HGB CONC 31.8 g/dL (31-35); MEAN CORPUSCULAR VOLUME 89.8 fL (81-99); MONOCYTES # (AUTO) 0.6 (0.2-0.8); MONOCYTES % 7.2 % (4.4-11.3); NEUTROPHILS # (AUTO) 5.4 (2.1-6.9); NEUTROPHILS % 66.6 % (38.7-80.0); PLATELET COUNT 343 x10e3/uL (140-360); RED CELL DISTRIBUTION WIDTH 12.3 % (11.7-14.4)
--- NOTE | 2020-03-18 07:11 | NUR ---
Notified house sup PICC RN did not stay to read chest xray and it seems to be inserted too far into Right Atrium. She stated there will be in house PICC logistics team leader here this AM that could pull line back if needed. Notified day RN Ilya.
[2020-03-18 07:22] LABS: ALANINE AMINOTRANSFERASE 54 IU/L (0-55); ALBUMIN 2.1 g/dL (3.5-5.0); ALBUMIN/GLOBULIN RATIO 0.5 (0.8-2.0); ALKALINE PHOSPHATASE 84 IU/L (40-150); BLOOD UREA NITROGEN 12 mg/dL (7-26); BUN/CREATININE RATIO 20 (6-25); CALCIUM 8.4 mg/dL (8.4-10.2); CARBON DIOXIDE 32 mmol/L (22-29); CHLORIDE 100 mmol/L (98-107); EST GLOMERULAR FILTRATION RATE > 60 ML/MIN (60-); GLUCOSE 135 mg/dL (74-118); SODIUM 136 mmol/L (136-145)
[2020-03-18] MEDS: INSULIN REGULAR, HUMAN 100 UNIT/1 ML 3ML VIAL SQ SCH ×4 (07:30→22:10)
[2020-03-18] MEDS: ZINC SULFATE 220 MG CAP PO SCH ×2 (11:53→18:11)
[2020-03-18] MEDS: LISINOPRIL 10 MG TAB PO SCH (11:53)
[2020-03-18] MEDS: FAMOTIDINE 20 MG/2 ML VIAL IV SCH ×2 (11:53→22:08)
[2020-03-18] MEDS: CHOLECALCIFEROL 400 UNIT TAB PO SCH (11:53)
[2020-03-18] MEDS: ASCORBIC ACID 500 MG TAB PO SCH ×2 (11:53→18:11)
[2020-03-18] MEDS: ENOXAPARIN SOD INJ 40 MG/0.4 ML SYR SC SCH ×2 (11:53→22:08)
--- NOTE | 2020-03-18 13:36 | Progress Note ---
DATE: SUBJECTIVE: The patient is sitting upright in a chair. He is still on Vapotherm. He is on 30 L and his FiO2 is set at 65%. PHYSICAL EXAMINATION: VITAL SIGNS: Blood pressure is 140/86, saturation is 96%, and pulse is 110. HEENT: Shows no facial swelling or erythema. CARDIAC: Reveals regular rate and rhythm with normal S1 and S2. LUNGS: Auscultation of lungs reveals crackles at the bases. There is no wheezing. ABDOMEN: Soft and nontender. There is no rebound or guarding. EXTREMITIES: Show no leg edema or calf tenderness. There is no cyanosis or clubbing. LABORATORY DATA: CBC is within normal limits. BUN to creatinine ratio is normal. Other electrolytes are within normal limits. IMPRESSION: 1. Acute respiratory failure. 2. Viral pneumonia and coronavirus disease 2019 infection. 3. Diabetes. PLAN: 1. Continue to wean Vapotherm. 2. Continue to monitor and control blood sugars. 3. Complete Decadron. 4. Complete Lovenox. 5. Complete antibiotics. Ortega Mcginnis MD [facility]/MODL /[id number]
--- NOTE | 2020-03-18 14:20 | NUR ---
PICC tip is in SVC per radiology report by Dr Mckinley. PICC is okay to use
--- NOTE | 2020-03-18 14:48 | Diagnostic Imaging Report ---
EXAMINATION: CHEST SINGLE (PORTABLE) INDICATION: picc line repositioned COMPARISON: None FINDINGS: AP view TUBES and LINES: There is a right-sided PICC line in place with distal tip in SVC. LUNGS/PLEURA: Lungs are well inflated. There are unchanged bilateral patchy opacities compatible with multifocal pneumonia.. There is no pleural effusion or pneumothorax. HEART AND MEDIASTINUM: The cardiomediastinal silhouette is unremarkable. BONES AND SOFT TISSUES: No acute osseous lesion. Soft tissues are unremarkable. UPPER ABDOMEN: No free air under the diaphragm. IMPRESSION: Unchanged bilateral patchy opacities compatible with multifocal pneumonia Signed by: Papi Mckinley MD on 03/18/2020 2:44 PM
[2020-03-18] MEDS: ATORVASTATIN 20 MG TAB PO SCH (22:08)
[2020-03-18] MEDS: INSULIN GLARGINE 100 UNITS/ML VIAL SQ SCH (22:10)
[2020-03-19] VITALS (21 sets, daily range): BP systolic 110–136; BP diastolic 56–85
[2020-03-19 06:06] LABS: BASOPHILS % 0.4 % (0.0-1.0); EOSINOPHILS # (AUTO) 0.4 (0.0-0.4); EOSINOPHILS % 3.9 % (0.0-6.0); HEMATOCRIT 36.4 % (38.2-49.6); HEMOGLOBIN 11.7 g/dL (14.0-18.0); LYMPHOCYTES # (AUTO) 2.6 (1.0-3.2); LYMPHOCYTES % 28.2 % (18.0-39.1); MEAN CORPUSCULAR HEMOGLOBIN 28.3 pg (28-32); MEAN CORPUSCULAR HGB CONC 32.1 g/dL (31-35); MEAN CORPUSCULAR VOLUME 87.9 fL (81-99); MONOCYTES # (AUTO) 0.7 (0.2-0.8); MONOCYTES % 7.9 % (4.4-11.3); NEUTROPHILS # (AUTO) 5.4 (2.1-6.9); NEUTROPHILS % 59.3 % (38.7-80.0); PLATELET COUNT 354 x10e3/uL (140-360); RED BLOOD COUNT 4.14 x10e6/uL (4.3-5.7); RED CELL DISTRIBUTION WIDTH 12.4 % (11.7-14.4)
[2020-03-19 06:36] LABS: ALANINE AMINOTRANSFERASE 58 IU/L (0-55); ALBUMIN 2.1 g/dL (3.5-5.0); ALBUMIN/GLOBULIN RATIO 0.5 (0.8-2.0); ALKALINE PHOSPHATASE 87 IU/L (40-150); ANION GAP 10.8 mmol/L (8-16); BLOOD UREA NITROGEN 12 mg/dL (7-26); BUN/CREATININE RATIO 22 (6-25); CALCIUM 8.5 mg/dL (8.4-10.2); CARBON DIOXIDE 32 mmol/L (22-29); CHLORIDE 98 mmol/L (98-107); CREATININE, SERUM 0.55 mg/dL (0.72-1.25); EST GLOMERULAR FILTRATION RATE > 60 ML/MIN (60-); GLUCOSE 104 mg/dL (74-118); POTASSIUM 3.8 mmol/L (3.5-5.1); SODIUM 137 mmol/L (136-145)
--- NOTE | 2020-03-19 07:07 | NUR ---
infectious disease first note Date 03 18 2020 patient seen examined chart reviewed Discussed with the medical team at length Please refer to the orders The patient is sitting upright in a chair. He is still on Vapotherm. He is on 30 L and his FiO2 is set at 65%. PHYSICAL EXAMINATION: VITAL SIGNS: Blood pressure is 140/86, saturation is 96%, and pulse is 110. HEENT: Shows no facial swelling or erythema. CARDIAC: Reveals regular rate and rhythm with normal S1 and S2. LUNGS: Auscultation of lungs reveals crackles at the bases. There is no wheezing. ABDOMEN: Soft and nontender. There is no rebound or guarding. EXTREMITIES: Show no leg edema or calf tenderness. There is no cyanosis or clubbing. LABORATORY DATA: CBC is within normal limits. BUN to creatinine ratio is normal. Other electrolytes are within normal limits. IMPRESSION: 1. Acute respiratory failure. 2. Viral pneumonia and coronavirus disease 2019 infection. 3. Diabetes. Continue supportive care continue diabetic control Continue anticoagulations ordered surveillance for nosocomial infections
--- NOTE | 2020-03-19 07:08 | NUR ---
patient seen and examined chart reviewed this is infectious disease progress note Laboratory review chart reviewed on NC PHYSICAL EXAMINATION: VITAL SIGNS: Blood pressure is 140/86, saturation is 96%, and pulse is 110. HEENT: Shows no facial swelling or erythema. CARDIAC: Reveals regular rate and rhythm with normal S1 and S2. LUNGS: Auscultation of lungs reveals crackles at the bases. There is no wheezing. ABDOMEN: Soft and nontender. There is no rebound or guarding. EXTREMITIES: Show no leg edema or calf tenderness. There is no cyanosis or clubbing. LABORATORY DATA: CBC is within normal limits. BUN to creatinine ratio is normal. Other electrolytes are within normal limits. IMPRESSION: 1. Acute respiratory failure. 2. Viral pneumonia and coronavirus disease 2019 infection. 3. Diabetes. IMPOVING CN LEAVE icu
[2020-03-19] MEDS: INSULIN REGULAR, HUMAN 100 UNIT/1 ML 3ML VIAL SQ SCH ×4 (07:28→21:05)
[2020-03-19] MEDS: ENOXAPARIN SOD INJ 40 MG/0.4 ML SYR SC SCH ×2 (08:09→21:05)
[2020-03-19] MEDS: FAMOTIDINE 20 MG/2 ML VIAL IV SCH ×2 (08:09→21:05)
[2020-03-19] MEDS: LISINOPRIL 10 MG TAB PO SCH (08:09)
[2020-03-19] MEDS: ASCORBIC ACID 500 MG TAB PO SCH ×2 (08:09→16:21)
[2020-03-19] MEDS: CHOLECALCIFEROL 400 UNIT TAB PO SCH (08:09)
[2020-03-19] MEDS: ZINC SULFATE 220 MG CAP PO SCH ×2 (08:09→16:21)
--- NOTE | 2020-03-19 15:24 | Progress Note ---
DATE: SUBJECTIVE: The patient is feeling better. His Vapotherm is down to 15 L with 40%. He has less cough and no fevers. PHYSICAL EXAMINATION: VITAL SIGNS: Blood pressure is 122/74, saturation is 96% on 8 L. HEENT: Shows no facial swelling or erythema. CARDIAC: Reveals regular rate and rhythm with normal S1 and S2. LUNGS: Auscultation of lungs reveals crackles at the bases. There is no wheezing. ABDOMEN: Soft, nontender. There is no rebound or guarding. EXTREMITIES: Shows no leg edema or calf tenderness. There is no cyanosis or clubbing. SKIN: Shows no rashes. NEUROLOGIC: Shows no focal abnormalities. LABORATORY DATA: White blood cell count is 9, hemoglobin is 11.7 and platelet count is 354. BUN to creatinine ratio is normal. The other electrolytes are within normal limits. The albumin is 2.1. IMPRESSION: 1. Acute respiratory failure. 2. Viral pneumonia and coronavirus disease-19 infection. 3. Diabetes. PLAN: 1. Continue to wean oxygen and switch from Vapotherm to nasal cannula. 2. Continue to monitor and control blood sugars. 3. Complete Decadron. 4. Lovenox. 5. Complete antibiotics. Ortega Mcginnis MD [facility]/MODL /[id number]
--- NOTE | 2020-03-19 16:47 | NUR ---
Nutrition Screen Note RD Recommendation for Physician: -Continue current diet as ordered Plan of Care: RD following, monitoring for tolerance and adequacy Nutrition reason for involvement: follow up Primary Diagnose(s): pneumonia due to COVID-19, respiratory failure PMH: HTN, diabetes, hypercholesterolemia Ht: 72 in Wt:255 lbs (03/15) 260 lb (03/08) BMI: 34.7 kg/m2 IBW:[address] Assessment: 03/19: Follow up. Unable to enter room due to isolation precautions. Pt remains in the ICU. It is recorded that pt has been consuming 100% of meals. Will continue to monitor. (03/10/20) Chart reviewed. Labs and meds reviewed. Pt is a 49 year old male admitted with pneumonia due to COVID-19 and respiratory failure. Unable to speak to pt due to isolation precautions. Meal intake is not recorded at this time and there are no previous weights in chart. If PO intake is <50% of meals, offer Glucerna nutrition supplement. Will continue to monitor Current Diet: 2000 ADA Malnutrition Evaluation (03/10/20) Unable to fully assess. Will re-evaluate at follow-up as appropriate. Energy intake: Adequate PO intake documented Weight loss: Unable to assess Fat loss: unable to evaluate Muscle loss: unable to evaluate Supporting Evidence: Fluid accumulation: no leg edema per MD note Functional Status: unable to evaluate Diet Education Needs Assessment: RD is available for diet education as needed Nutrition Care Level: low Signed: Noa Hi RD, SHAY
--- NOTE | 2020-03-19 18:00 | NUR ---
Patient slowly weaned off vapotherm to 6L NC, vital signs stable. Per Dr. Carlie Mcginnis and Dr. Farias transfer patient to med surg floor. Pt now in room 177, no s/s of distress noted at this time.
--- NOTE | 2020-03-19 18:20 | NUR ---
Received patient from [facility] ICU via bed. AAOX4 to time, person, place, situation. Respirations even and unlabored. o2 6L NC. Orientated patient to room. Instructed to use call light for assistance. Voiced understanding.
--- NOTE | 2020-03-19 19:44 | NUR ---
Report given to oncoming nurse of patient's status. No s/s of acute distress noted. Resting in bed. Side rails upx2, call light within reach.
[2020-03-19] MEDS: ATORVASTATIN 20 MG TAB PO SCH (21:05)
[2020-03-19] MEDS: INSULIN GLARGINE 100 UNITS/ML VIAL SQ SCH (21:05)
--- NOTE | 2020-03-19 21:05 | NUR ---
PATIENT IN STABLE CONDITION, NO SIGNS OF DISTRESS NOTED. NASAL CANNULA IS INTACT AND RUNNING AT 6 LITERS AND O2 SAT IS AT NORMAL RANGE. PATIENT IS RESTING COMFORTABLY AND VOICES NO PAIN AT THIS TIME, HEAD OF BED ELEVATED. BED IS IN LOWEST POSITION, BOTH SIDE RAILS ARE UP, CALL LIGHT IS WITHIN EASY REACH, WILL CONTINUE TO MONITOR.
[2020-03-20] VITALS (8 sets, daily range): BP systolic 121–159; BP diastolic 67–85
[2020-03-20 05:49] LABS: BASOPHILS # (AUTO) 0.1 (0.0-0.1); BASOPHILS % 0.6 % (0.0-1.0); EOSINOPHILS # (AUTO) 0.4 (0.0-0.4); EOSINOPHILS % 4.5 % (0.0-6.0); HEMATOCRIT 36.4 % (38.2-49.6); HEMOGLOBIN 11.5 g/dL (14.0-18.0); LYMPHOCYTES # (AUTO) 2.5 (1.0-3.2); LYMPHOCYTES % 28.9 % (18.0-39.1); MEAN CORPUSCULAR HEMOGLOBIN 27.8 pg (28-32); MEAN CORPUSCULAR HGB CONC 31.6 g/dL (31-35); MEAN CORPUSCULAR VOLUME 88.1 fL (81-99); MONOCYTES # (AUTO) 0.7 (0.2-0.8); MONOCYTES % 7.9 % (4.4-11.3); NEUTROPHILS # (AUTO) 5.1 (2.1-6.9); NEUTROPHILS % 57.9 % (38.7-80.0); PLATELET COUNT 331 x10e3/uL (140-360); RED BLOOD COUNT 4.13 x10e6/uL (4.3-5.7); RED CELL DISTRIBUTION WIDTH 12.5 % (11.7-14.4)
[2020-03-20 06:18] LABS: ALANINE AMINOTRANSFERASE 67 IU/L (0-55); ALBUMIN 2.1 g/dL (3.5-5.0); ALBUMIN/GLOBULIN RATIO 0.5 (0.8-2.0); ALKALINE PHOSPHATASE 88 IU/L (40-150); ANION GAP 10.7 mmol/L (8-16); BLOOD UREA NITROGEN 11 mg/dL (7-26); BUN/CREATININE RATIO 18 (6-25); CALCIUM 8.3 mg/dL (8.4-10.2); CARBON DIOXIDE 31 mmol/L (22-29); CHLORIDE 100 mmol/L (98-107); CREATININE, SERUM 0.62 mg/dL (0.72-1.25); EST GLOMERULAR FILTRATION RATE > 60 ML/MIN (60-); GLUCOSE 107 mg/dL (74-118); POTASSIUM 3.7 mmol/L (3.5-5.1); SODIUM 138 mmol/L (136-145)
--- NOTE | 2020-03-20 07:00 | NUR ---
BEDSIDE SHIFT REPORT RECEIVED FROM THE SIGN WRITER LETTERER OR PAINTER RN. EDUCATED PT ABOUT FALL PRECAUTIONS. PT VERBALIZED UNDERSTANDING. BED IS LOW AND LOCKED. SIDE RAILS X2. CALL LIGHT WITH IN EASY REACH. PT DENIES NEEDS AT THIS TIME.
[2020-03-20] MEDS: INSULIN REGULAR, HUMAN 100 UNIT/1 ML 3ML VIAL SQ SCH ×4 (08:30→20:55)
[2020-03-20] MEDS: FAMOTIDINE 20 MG/2 ML VIAL IV SCH ×2 (09:27→20:58)
[2020-03-20] MEDS: ENOXAPARIN SOD INJ 40 MG/0.4 ML SYR SC SCH ×2 (09:28→20:59)
[2020-03-20] MEDS: ZINC SULFATE 220 MG CAP PO SCH ×2 (09:28→16:07)
[2020-03-20] MEDS: CHOLECALCIFEROL 400 UNIT TAB PO SCH (09:28)
[2020-03-20] MEDS: LISINOPRIL 10 MG TAB PO SCH (09:28)
[2020-03-20] MEDS: ASCORBIC ACID 500 MG TAB PO SCH ×2 (09:33→16:07)
--- NOTE | 2020-03-20 12:00 | NUR ---
PICC LINE IN PLACE RIGHT UPPER ARM. LAC IV REMOVED. TIP INTACT. DRESSING APPLIED. PT DENIED FURTHER NEEDS.
--- NOTE | 2020-03-20 16:26 | Progress Note ---
DATE: SUBJECTIVE: The patient is doing better. He is down to 5 L of oxygen. He has less dyspnea and less cough. PHYSICAL EXAMINATION: VITAL SIGNS: The patient is afebrile. The blood pressure is 159/85, saturation is 98% on 5 L. HEENT: No facial swelling or erythema. LYMPHATIC: No submandibular, cervical, or supraclavicular adenopathy. CARDIAC: Regular rate and rhythm with a normal S1, S2. There are no murmurs or rubs. LUNGS: Auscultation of lungs is crackles at the bases. There is no wheezing. ABDOMEN: Soft, nontender. There is no rebound or guarding. EXTREMITIES: No leg edema or calf tenderness. There is no cyanosis or clubbing. SKIN: No rashes. LABORATORY DATA: White blood cell count is 8.7, hemoglobin is 11.5, and the platelet count is 331. BUN to creatinine ratio is normal. Other electrolytes are within normal limits and the albumin is 2.1. IMPRESSION: 1. Acute respiratory failure. 2. Viral pneumonia and coronavirus disease-19 infection. 3. Diabetes. PLAN: 1. Continue to wean oxygen. 2. Check blood sugars and adjust insulin. 3. Complete Decadron. 4. Lovenox. Ortega Mcginnis MD [facility]/MODL /[id number]
--- NOTE | 2020-03-20 17:51 | Progress Note ---
DATE: SUBJECTIVE: Mr. Lewis is doing better. He is on 6 L. There is no new complaint. He is still weak. He came from the ICU. PHYSICAL EXAMINATION: GENERAL: Currently, alert. VITAL SIGNS: Stable, currently afebrile. HEENT: He is not icteric. NECK: Supple. CHEST: Clear. HEART: No murmur. ABDOMEN: Soft. IMPRESSION: COVID-19, status post antibiotic debility, hypertension. PLAN: Continue with oxygen weaning. PT, OT. Anticoagulation. If his oxygen level goes to 4 and less, then I can look into for discharging him to home. Discussed with Medical team. MD ANDERS Tapia/AMARA /[id number]
--- NOTE | 2020-03-20 19:08 | NUR ---
BEDSIDE SHIFT REPORT GIVEN TO THE MANAGER GYN RN. PT DENIED FURTHER NEEDS.
[2020-03-20] MEDS: INSULIN GLARGINE 100 UNITS/ML VIAL SQ SCH (20:55)
--- NOTE | 2020-03-20 20:55 | NUR ---
PATIENT IN STABLE CONDITION, NO SIGNS OF DISTRESS NOTED. NASAL CANNULA IS INTACT AND RUNNING AT 4 LITERS AND O2 SAT IS AT NORMAL RANGE. PATIENT IS RESTING COMFORTABLY AND VOICES NO PAIN AT THIS TIME, HEAD OF BED ELEVATED. BED IS IN LOWEST POSITION, BOTH SIDE RAILS ARE UP, CALL LIGHT IS WITHIN EASY REACH, WILL CONTINUE TO MONITOR.
[2020-03-20] MEDS: ATORVASTATIN 20 MG TAB PO SCH (20:58)
--- NOTE | 2020-03-20 21:48 | Progress Note ---
DATE: SUBJECTIVE: The patient out of bed, sitting up on the couch at the bedside. Does still complain of dyspnea on exertion. No complaints of cough. Last bowel movement was this morning, otherwise no complaints. OBJECTIVE: VITAL SIGNS: Temperature 99.2, heart rate 108, blood pressure 159/85, respirations 26, and oxygen saturation 90%. GENERAL: No acute distress. LUNGS: Generally clear to auscultation. Currently oxygen at 5 L/minute via high-flow nasal cannula humidified. HEENT: EOMI. NECK: Supple. CARDIOVASCULAR: Regular rate and rhythm. No murmur. ABDOMEN: Bowel sounds positive. Soft and nontender. EXTREMITIES: No pitting edema. No clubbing, cyanosis, or marked swelling. NEUROLOGICAL: GCS 15. Nonfocal. LABORATORY DATA: WBCs 8.72, hemoglobin 11.5, hematocrit 36.4, and platelets 331. Sodium 138, potassium 3.7, chloride 101, CO2 31, BUN 11, creatinine 0.62, estimated GFR greater than 60, glucose 107, and calcium 8.3. Total bilirubin 0.3, AST 35, ALT 67, and alkaline phosphatase 88. Total protein 6.3 and albumin 2.1. No new imaging results. ASSESSMENT AND PLAN: 1. COVID-19 pneumonia with acute respiratory distress syndrome, off antibiotics. Continue Lovenox, vitamin C, vitamin D, and zinc. Wean oxygen as tolerated. 2. Controlled hypertension. Continue same. Blood pressure 159/85. Monitor. 3. Controlled type 2 diabetes mellitus. Blood glucose 107. Continue sliding scale insulin. Monitor. 4. Prophylaxis. Protonix and Lovenox. 5. Billing code [id number]. Time spent 35 minutes. Dictated by Maikel Storey NP Tacos Salguero MD [facility]/MODL /[id number]
[2020-03-21] VITALS (8 sets, daily range): BP systolic 125–140; BP diastolic 67–80
[2020-03-21 05:04] LABS: BASOPHILS # (AUTO) 0.1 (0.0-0.1); BASOPHILS % 0.6 % (0.0-1.0); EOSINOPHILS # (AUTO) 0.5 (0.0-0.4); EOSINOPHILS % 5.6 % (0.0-6.0); HEMATOCRIT 38.4 % (38.2-49.6); HEMOGLOBIN 12.2 g/dL (14.0-18.0); LYMPHOCYTES # (AUTO) 2.7 (1.0-3.2); LYMPHOCYTES % 28.8 % (18.0-39.1); MEAN CORPUSCULAR HEMOGLOBIN 27.9 pg (28-32); MEAN CORPUSCULAR HGB CONC 31.8 g/dL (31-35); MEAN CORPUSCULAR VOLUME 87.9 fL (81-99); MONOCYTES # (AUTO) 0.7 (0.2-0.8); MONOCYTES % 7.2 % (4.4-11.3); NEUTROPHILS # (AUTO) 5.3 (2.1-6.9); NEUTROPHILS % 57.3 % (38.7-80.0); PLATELET COUNT 332 x10e3/uL (140-360); RED BLOOD COUNT 4.37 x10e6/uL (4.3-5.7); RED CELL DISTRIBUTION WIDTH 12.4 % (11.7-14.4)
[2020-03-21 05:22] LABS: ALANINE AMINOTRANSFERASE 68 IU/L (0-55); ALBUMIN 2.2 g/dL (3.5-5.0); ALBUMIN/GLOBULIN RATIO 0.5 (0.8-2.0); ALKALINE PHOSPHATASE 95 IU/L (40-150); ANION GAP 10.9 mmol/L (8-16); BLOOD UREA NITROGEN 11 mg/dL (7-26); BUN/CREATININE RATIO 17 (6-25); CALCIUM 8.8 mg/dL (8.4-10.2); CARBON DIOXIDE 31 mmol/L (22-29); CHLORIDE 101 mmol/L (98-107); CREATININE, SERUM 0.64 mg/dL (0.72-1.25); EST GLOMERULAR FILTRATION RATE > 60 ML/MIN (60-); GLUCOSE 115 mg/dL (74-118); POTASSIUM 3.9 mmol/L (3.5-5.1); SODIUM 139 mmol/L (136-145)
[2020-03-21] MEDS ORDERED: Cholecalciferol PO (07:58)
[2020-03-21] MEDS ORDERED: ZINC SULFATE220 M1 PO (07:58)
[2020-03-21] MEDS ORDERED: Insulin Glargine SQ (07:58)
[2020-03-21] MEDS ORDERED: ASCORBIC ACID500 MG PO (07:58)
[2020-03-21] MEDS ORDERED: HUMULIN R100 UNIT/2 SQ (07:58)
[2020-03-21] MEDS ORDERED: VENTOLIN HFA18 GM INH (07:58)
[2020-03-21] MEDS ORDERED: ASPIRIN ENTERI325 MG PO (07:58)
[2020-03-21] MEDS: FAMOTIDINE 20 MG/2 ML VIAL IV SCH ×2 (08:27→21:30)
[2020-03-21] MEDS: LISINOPRIL 10 MG TAB PO SCH (08:27)
[2020-03-21] MEDS: ZINC SULFATE 220 MG CAP PO SCH ×2 (08:27→16:34)
[2020-03-21] MEDS: CHOLECALCIFEROL 400 UNIT TAB PO SCH (08:27)
[2020-03-21] MEDS: ASCORBIC ACID 500 MG TAB PO SCH ×2 (08:27→16:34)
[2020-03-21] MEDS: INSULIN REGULAR, HUMAN 100 UNIT/1 ML 3ML VIAL SQ SCH ×4 (08:28→21:00)
--- NOTE | 2020-03-21 14:00 | NUR ---
Dr. Hendricks here to see pt. Explained to Dr. Hendricks that pt having lots of pain when he is laid completely flat and therefore could not tolerate MRI. Dr. Hendricks ordered Dilaudid 1mg IV X 1 dose for MRI. Pt has no known drug allergies.
--- NOTE | 2020-03-21 14:04 | NUR ---
This is a progress note for infectious disease Patient seen and examined chart reviewed This is day #17 of hospitalization he patient out of bed, sitting up on the couch at the bedside. Does still complain of dyspnea on exertion. No complaints of cough. Last bowel movement was this morning, otherwise no complaints. Patient remained short of breath but overall better OBJECTIVE: VITAL SIGNS: Temperature 99.2, heart rate 108, blood pressure 159/85, respirations 26, and oxygen saturation 90%. GENERAL: No acute distress. LUNGS: Generally clear to auscultation. Currently oxygen at 5 L/minute via high-flow nasal cannula humidified. HEENT: EOMI. NECK: Supple. CARDIOVASCULAR: Regular rate and rhythm. No murmur. ABDOMEN: Bowel sounds positive. Soft and nontender. EXTREMITIES: No pitting edema. No clubbing, cyanosis, or marked swelling. NEUROLOGICAL: GCS 15. Nonfocal. LABORATORY DATA: WBCs 8.72, hemoglobin 11.5, hematocrit 36.4, and platelets 331. Sodium 138, potassium 3.7, chloride 101, CO2 31, BUN 11, creatinine 0.62, estimated GFR greater than 60, glucose 107, and calcium 8.3. Total bilirubin 0.3, AST 35, ALT 67, and alkaline phosphatase 88. Total protein 6.3 and albumin 2.1. No new imaging results. ASSESSMENT AND PLAN: 1. COVID-19 pneumonia with acute respiratory distress syndrome, patient continues slowly to improve continued oxygen as needed once his oxygenation reached to 4 L and he can walk without feeling dizzy with oxygen he can go home. off antibiotics. Continue Lovenox, vitamin C, vitamin D, and zinc. Wean oxygen as tolerated. 2. Controlled hypertension. Continue same. Blood pressure 159/85. Monitor. 3. Controlled type 2 diabetes mellitus. Blood glucose 107. Continue sliding scale insulin. Monitor. 4. Prophylaxis. Protonix and Lovenox.
--- NOTE | 2020-03-21 18:59 | Discharge Summary ---
CONSULTING PHYSICIANS: 1. Dr. Jeffry De Leon with Infectious Disease. 2. Dr. Ortega Mcginnis with Pulmonology. PRIMARY CARE PHYSICIAN: Dr. Kota Zapien. CHIEF COMPLAINT: Dyspnea. HISTORY OF PRESENT ILLNESS: The patient is a 49-year-old male, who admitted with complaints of dyspnea and productive cough for a week. He was not unaware of any fever at the time of admission. PAST MEDICAL HISTORY: Hypertension, type 2 diabetes mellitus, hyperlipidemia. PAST SURGICAL HISTORY: No apparent surgical history. FAMILY HISTORY: Diabetes mellitus in mother, father, brother, sister. Mother had cancer. SOCIAL HISTORY: Noncontributory. ALLERGIES: NO KNOWN ALLERGIES. ADMITTING DIAGNOSES: 1. COVID-19 pneumonia with severe sepsis, POA with acute respiratory distress syndrome. 2. Type 2 diabetes mellitus. 3. Hypertension. 4. Transaminitis. 5. Hyperlipidemia. 6. Obesity with BMI of 33.9. DISCHARGE DIAGNOSES: 1. COVID-19 pneumonia with acute respiratory distress syndrome. 2. Controlled hypertension. 3. Controlled type 2 diabetes mellitus. 4. Hyperlipidemia. 5. Obesity, BMI 33.08. On admission 03/04/2020, WBCs 18.53, hemoglobin 13.9, hematocrit 41.4, and platelets 361. ABG; pH of 7.50, pCO2 of 33, PO2 of 78, HCO3 of 26, oxygen saturation 97%, base excess of 2, FiO2 is 80%, PTT 37.3, sodium 132, potassium 4.4, chloride 95, CO2 of 24, anion gap 17.4, BUN 16, creatinine 0.91, estimated GFR greater than 60, glucose 308. Lactic acid 2.1, which improved to 1.6, calcium 9.6, AST 35, ALT 42, alkaline phosphatase 144, total bilirubin 0.6. Cardiac biomarkers within normal limits x3 sets. B-type natriuretic peptide less than 10. Hemoglobin A1c was 8.8% on 03/06/2020. Urinalysis was slightly cloudy, 1+ protein, trace amount of blood, negative for nitrites, negative for leukocyte esterases, 6 to 10 rbc's, moderate bacteria. On 03/04/2020, Coronavirus PCR detected. Final urine culture on 03/05/2020, showed no growth after 36 to 48 hours. Blood cultures x2 showed no growth after 5 days. Initial chest x-ray on 03/04/2020, showed hypoinflated lungs, diffuse bilateral patchy interstitial and airspace opacities suggesting multifocal pneumonia including viral and/or pulmonary edema. Pulmonary vasculature obscured. PICC line was inserted on 03/17/2020. Chest x-ray on 03/18/2020, showed unchanged bilateral patchy opacities compatible with multifocal pneumonia. During his stay, the patient on azithromycin, Rocephin, dexamethasone, Lovenox, zinc, vitamin C, vitamin D, albuterol inhaler. Overall, the patient is improving. We will discharge him home on [place] [employer] diet. Activity level as tolerated. Oxygen at 5 L/minute nasal cannula today while asleep, high-flow humidified, however, able to tolerate 4 L/minute without difficulty when awake, been out of bed, sitting up on the couch at bedside during the day yesterday. Today, states he ate breakfast. Denies pain. Mild sore throat, mild cough. Overall, just weak. No change in physical exam. The patient to follow up with his PCP, Dr. Kota Zapien in one month, as well as Dr. De Leon with Infectious Disease. We will send him home on the following prescriptions, vitamin C 1000 mg p.o. b.i.d., Ventolin HFA 4 g inhalation every 4 hours p.r.n., cholecalciferol 400 units p.o. daily for 30 days, Lantus insulin from 24 units subcu at bedtime, regular insulin sliding scale beginning at 121 to 150, take 4 units subcu. Zinc sulfate 220 mg p.o. b.i.d. for one month, aspirin 325 mg p.o. daily for month. Dictated by Maikel Storey NP Tacos Salgureo MD [facility]/MODL /[id number]
--- NOTE | 2020-03-21 19:25 | NUR ---
Patient received sitting up in bed. AAO x 3. Patient had no complaints of pain. Respirations even and non-labored on 4L NC. Safety measures in place. Patient instructed to call for assistance when needed. Call light within reach.
[2020-03-21] MEDS: ATORVASTATIN 20 MG TAB PO SCH (21:30)
[2020-03-21] MEDS: INSULIN GLARGINE 100 UNITS/ML VIAL SQ SCH (23:02)
[2020-03-22] VITALS: BP 131/81
[2020-03-22 04:00] VITALS: BP 128/78
[2020-03-22 08:00] VITALS: BP 129/77
[2020-03-22] MEDS: FAMOTIDINE 20 MG/2 ML VIAL IV SCH (08:19)
[2020-03-22] MEDS: LISINOPRIL 10 MG TAB PO SCH (08:19)
[2020-03-22] MEDS: ZINC SULFATE 220 MG CAP PO SCH (08:19)
[2020-03-22] MEDS: CHOLECALCIFEROL 400 UNIT TAB PO SCH (08:19)
[2020-03-22] MEDS: ASCORBIC ACID 500 MG TAB PO SCH (08:19)
[2020-03-22 08:26] VITALS: BP 129/77
[2020-03-22] MEDS: INSULIN REGULAR, HUMAN 100 UNIT/1 ML 3ML VIAL SQ SCH ×2 (08:28→12:36)
[2020-03-22 13:35] VITALS: BP 130/98
--- NOTE | 2020-03-22 13:48 | NUR ---
ORDERS FOR HOME 02 SATS ON ROOM AIR WITH EXERTION 85% CHOICE LETTER FOR [facility] SIGNED AND ON CHART COPY TO PT INSTRUCTED TO CALL [facility] WHEN HE GETS HOME TO HAVE [facility]ATOR DELIVERED ORDERS AND H+P FAXED TO [facility] AT [phone], CONFIRMATION REC'D DISCHARGED HOME TODAY TEXT TO ELVER FENG TO MAKE HIM AWARE OF ORDERS
--- NOTE | 2020-03-22 18:27 | NUR ---
Pt discharged home at this time. Pt is aox4 at time of discharge. Pt was discharge with home oxygen and was able to properly demonstrate how to administer oxygen. Breathes even and unlabored on 4L/NC of oxygen. Pt was discharged with prescriptions and verbalized understanding of new prescriptions.
--- NOTE | 2020-03-22 18:45 | Progress Note ---
DATE: SUBJECTIVE: The patient is having less dyspnea and less cough. He is now down to 4 L. PHYSICAL EXAMINATION: VITAL SIGNS: Blood pressure is 130/98 and saturating 97% on 4 L. HEENT: Shows no facial swelling or erythema. CARDIAC: Reveals regular rate and rhythm with normal S1, S2. LUNGS: Auscultation of lungs reveals crackles at the bases. There is no wheezing. ABDOMEN: Soft, nontender. There is no rebound or guarding. EXTREMITIES: Shows no leg edema. IMPRESSION: 1. Viral pneumonia and COVID-19 infection. 2. Diabetes. PLAN: 1. Continue to wean oxygen. 2. Continue to monitor blood sugars and give insulin as needed. 3. Possible discharge home. 4. The patient needs low-dose Eliquis or high-dose aspirin for one month after discharge. Ortega Mcginnis MD [facility]/MODL /[id number]
--- NOTE | 2020-03-22 18:56 | Progress Note ---
DATE: SUBJECTIVE: Mr. Lewis has been here for 18 days. He is doing well, weak, with no complaints. PHYSICAL EXAMINATION: GENERAL: He is currently alert, oriented. VITALS: Stable, currently afebrile. HEENT: He is not icteric. NECK: Supple. CHEST: Clear. HEART: S1 and S2. ABDOMEN: Soft. IMPRESSION: COVID-19, the patient will be discharged home with oxygen and low level of anticoagulation, Eliquis 2.5 mg p.o. b.i.d. or aspirin 325 p.o. daily for 6 days oxygen as needed and Ventolin inhaler. Follow up in 2 months. The patient is not infectious 20 days since the onset of illness. No need to repeat PCR. MD ANDERS Tapia/AMARA /[id number]
--- NOTE | 2020-03-22 22:51 | Discharge Summary ---
ADDENDUM: Yesterday, the patient's home oxygen evaluation showed an oxygen saturation at rest on room air 86%, oxygen saturation being exerted on room air 72%, then oxygen saturation being exerted on 4 L/minute of oxygen 88%. The patient was kept overnight due to this home oxygen evaluation looking so poorly. Essentially, no change in patient's status. He did not worsen overnight. This morning, on 03/22, the home oxygen evaluation was repeated and the oxygen saturation at rest on room air was 97%, oxygen saturation being exerted on room air 85%, and oxygen saturation being exerted on 4 L/minute of oxygen 93%. According to the nurseJenn, the patient doing much better. This morning, got out of bed, showered. He has been on 4 L of oxygen this morning, will be discharged today with home oxygen. Vital signs; temperature 98.1, heart rate 78, blood pressure 129/77, respirations 18, and oxygen saturation 97%. No new labs today. No change in physical exam. We will continue with the prescriptions that have already been written. Dictated by Maikel Storey NP MD MILTON Leung/NINAL /[id number]
== END 2020-03-22 16:23 | disposition home or self-care (01) | DRG 871 ==
LOC: ER 15:46 → ERHOLD 17:22 → COVIDICU 03-08 02:30 → IMCU 03-19 18:24
PROVIDERS: ADMIT Internal Medicine; ATTEND Internal Medicine
PROC: 02HV33Z Insertion of Infusion Device into Superior Vena Cava, Percutaneous Approach (ICD-10-PCS; principal; 2020-03-17)
PROC: B548ZZA Ultrasonography of Superior Vena Cava, Guidance (ICD-10-PCS; 2020-03-17)
DX: A41.89 Other specified sepsis (principal); U07.1 COVID-19; J12.89 Other viral pneumonia; J96.01 Acute respiratory failure with hypoxia; J15.9 Unspecified bacterial pneumonia; E87.1 Hypo-osmolality and hyponatremia; I10 Essential (primary) hypertension; E78.5 Hyperlipidemia, unspecified; Z79.84 Long term (current) use of oral hypoglycemic drugs; Z79.82 Long term (current) use of aspirin; E66.9 Obesity, unspecified; E11.65 Type 2 diabetes mellitus with hyperglycemia; E88.09 Other disorders of plasma-protein metabolism, not elsewhere classified; R53.81 Other malaise; R65.20 Severe sepsis without septic shock; Z83.3 Family history of diabetes mellitus; Z80.9 Family history of malignant neoplasm, unspecified; Z68.33 Body mass index [BMI] 33.0-33.9, adult
CPT/HCPCS: 36415; 36569; 36600; 71045; 80053; 80061; 80202; 81001; 82550; 82553; 82805; 82948; 83036; 83605; 83735; 83880; 84100; 84443; 84484; 85025; 85610; 85730; 87040; 87086; 93005; 96372; 97139; 99284; J0456; J0696; J1100; J1650; J1815; J1817; J3370; J7030; J7121; U0002